=== PATIENT | female | born 1955 | race African-American/Black ===

== ENCOUNTER → 2020-11-09 | Outpatient (CLI) | payer MEDICARE ==
--- NOTE | 2020-11-11 11:27 | MM ---
Reason for exam: screening (asymptomatic). History: Patient is postmenopausal. Took hormonal contraceptives for 3 years. Physical Findings: A clinical breast exam by your physician is recommended on an annual basis and results should be correlated with mammographic findings. MG 3D Screening Mammo W/Cad Bilateral CC and MLO view(s) were taken. No prior studies available for comparison. The breast tissue is almost entirely fat. ASSESSMENT: Negative, BI-RAD 1 RECOMMENDATION: Routine screening mammogram of both breasts in 1 year.
== END | disposition home or self-care (01) ==
LOC: RADMAMWWP 12:56
PROVIDERS: ATTEND Family Medicine
DX: Z12.31 Encounter for screening mammogram for malignant neoplasm of breast (principal)
CPT/HCPCS: 77063; 77067

== ENCOUNTER → 2020-11-14 | Outpatient (CLI) | payer MEDICARE ==
[2020-11-14 13:04] VITALS: BP 137/75; PULSE 119; RESP 18
[2020-11-14 13:11] VITALS: TEMP 98.4
--- NOTE | 2020-11-14 13:34 | P.PAINCN ---
History of Present Illness - Reason for Consult Consult date: 11/14/20 - History of Present Illness This is a 64 years old female with a chronic history of severe low back pain, she is diagnosed with lumbar spondylosis with lumbar facet arthropathy, essentially she had diagnostic medial branch block lumbar area, L2 to L5 x2 , and she gets more than 80% improvement of her low back pain after each block, the pain relief was only for short-term and she was referred to [facility] pain clinic to have RFA of the medial branch lumbar area, she denies any motor or sensory deficit she denies any fever or night sweats and there is no change in the bowel movement or urination, she continued to use pain medication Ultram 50 mg every 6 hours when necessary Celebrex 200 mg daily when necessary and Flexeril 10 3 times a day when necessary, but generally fell from her primary care and she denies any side effects of the medication Past Medical History Past Medical History: Diabetes Mellitus, GERD/Reflux, Hyperlipidemia, Hypertension, Musculoskeletal Disorder, Osteoarthritis (OA) Additional Past Medical History / Comment(s): lumbar back pain History of Any Multi-Drug Resistant Organisms: None Reported Past Surgical History: Orthopedic Surgery, Tubal Ligation Additional Past Surgical History / Comment(s): right knee arthroscopy Past Anesthesia/Blood Transfusion Reactions: No Reported Reaction Past Psychological History: No Psychological Hx Reported Smoking Status: Current every day smoker Past Alcohol Use History: None Reported Additional Past Alcohol Use History / Comment(s): 1ppd for about 50 yrs. Past Drug Use History: None Reported Medications and Allergies Home Medications Medication Instructions Recorded Confirmed Type Atorvastatin [Lipitor] 10 mg PO DAILY 11/11/20 11/14/20 History Celecoxib [CeleBREX] 200 mg PO BID 11/11/20 11/14/20 History Cyclobenzaprine [Flexeril] 5 mg PO TID 11/11/20 11/14/20 History DULoxetine HCL [Cymbalta] 30 mg PO DAILY 11/11/20 11/14/20 History Loratadine [Claritin] 10 mg PO DAILY 11/11/20 11/14/20 History Omeprazole [PriLOSEC] 20 mg PO AC-BRKFST 11/11/20 11/14/20 History amLODIPine [Norvasc] 10 mg PO DAILY 11/11/20 11/14/20 History metFORMIN HCL [Glucophage] 500 mg PO BID 11/11/20 11/14/20 History traMADol HCL [Ultram] 50 mg PO BID 11/11/20 11/14/20 History Allergies Allergy/AdvReac Type Severity Reaction Status Date / Time No Known Allergies Allergy Verified 11/11/20 11:01 Physical Exam Vitals: Vital Signs Temp Pulse Resp BP Pulse Ox 11/14/20 12:59 98.4 F 119 H 18 137/75 96 Physical Examinations : -Constitutiona : Cooperative , not in acute distress . -HEENT : nech : supple , no Lymphadenopathy , normal thyroid size . : eyes : no ptosis , no icterus, no photophobia . - neurologic : Cranial nerve II to XII intact , no focal neurological deffecit . -psychatric : alert , oriented X 3 , appropriate affect , intact judgment and insight . -Lymphatic : no Lymphadenopathy . - musculoskeltal : Lumber spine moter stegnth lower extremities ,thigh and legs 5/5 Right side , 5/5 Left side deep tendon reflexes : normal Knee Jerk , normal ankle Jerk lumber facet Loading Test =positive Right , posiutive Left Range of motion of the lumbar spine Flexion 30 degrees, extension 10 degrees strait leg raising test = negative bilaterally Fabere test= negative bilaterally . Sever tenderness over the Sacroiliac joint on the Right . Gaenslen test= positive right. Seated flexion test= positive right . Assessment and Plan Plan: Assessment and plan=1-lumbar radiculopathy with facet arthropathy without m yelopathy 2-right sacroiliitis Patient had diagnostic medial branch blocks lumbar area and she had excellent pain relief ( 85 % ) on 2 different occasions He would be good candidate for RFA of the medial branch lumbar area at L3 , L4, L5 bilaterally Time with Patient: Greater than 30 PQRS Measure Charge Sheet Measure #130: Documentation of Current Meds in Medical Chart: Patient's medications documented in chart Measure #226: Tobacco Use: Screen & Cessation Intervention: Pt screened for tobacco use AND intervention given Measure #111: Pneumonia Vaccination: Pneumococcal vaccine NOT administered or previously given Measure #47: Advance Care Plan: Advance care planning discussed & documented, pt chose/unable to give Measure #412: Opioid Treatment Agreement: No documentation of signed opioid treatment agreement Measure #408: Opioid Therapy Follow-up Evaluation: Patient had NO f/u eval minimum every 3 months during opioid therapy Measure #317: Preventitive Care & Scrn High Bld Press & F/U: Normal blood pressure, f/u not required Measure #128: Body Mass Index (BMI) Screening & Follow-up: BMI documented ABOVE normal parameters - f/u documented Measure #131: Pain Assessment & Follow-up: Pain positive & plan documented, Follow-up scheduled Measure #431: Unhealthy Alcohol Use Preventative Care & Scrn: Patient not identified as an unhealthy alcohol user PQRS Narrative: Blood Pressure 137/75 Pain Intensity [None] 8 Scale Used Numeric (1 - 10) Hx Alcohol Use (MH) No Home Medications: Ambulatory Orders Atorvastatin [Lipitor] 10 mg PO DAILY 11/11/20 Celecoxib [CeleBREX] 200 mg PO BID 11/11/20 Cyclobenzaprine [Flexeril] 5 mg PO TID 11/11/20 DULoxetine HCL [Cymbalta] 30 mg PO DAILY 11/11/20 Loratadine [Claritin] 10 mg PO DAILY 11/11/20 Omeprazole [PriLOSEC] 20 mg PO AC-BRKFST 11/11/20 amLODIPine [Norvasc] 10 mg PO DAILY 11/11/20 metFORMIN HCL [Glucophage] 500 mg PO BID 11/11/20 traMADol HCL [Ultram] 50 mg PO BID 11/11/20
== END | disposition home or self-care (01) ==
LOC: PNWHC3 12:48
PROVIDERS: ATTEND Specialist
DX: M54.16 Radiculopathy, lumbar region (principal); M46.1 Sacroiliitis, not elsewhere classified; E11.9 Type 2 diabetes mellitus without complications; K21.9 Gastro-esophageal reflux disease without esophagitis; E78.5 Hyperlipidemia, unspecified; I10 Essential (primary) hypertension; M19.90 Unspecified osteoarthritis, unspecified site; Z79.84 Long term (current) use of oral hypoglycemic drugs; Z79.891 Long term (current) use of opiate analgesic; Z79.899 Other long term (current) drug therapy
CPT/HCPCS: 99211

== ENCOUNTER 2020-12-02 09:37 | Day surgery (SDC) | payer MEDICARE ==
[2020-11-28 14:01] VITALS: BMI 29.9
[~2020-12-02 09:37] MED LIST: LACTATED RINGERS 1,000 ML IV SCH
[2020-12-02 09:58] VITALS: TEMP 97.9
[2020-12-02] MEDS ORDERED: LIDOCAINE 1% (10MG/ML) FOR IV START INTRADERMA ONE (10:19)
[2020-12-02 10:24] LABS: Glucose,Whole Blood 101 mg/dL (75-99)
[2020-12-02] MEDS ORDERED: ROPIVACAINE 5MG/ML 20ML VIAL ONE (11:05)
[2020-12-02] MEDS ORDERED: MIDAZOLAM 2 MG/2 ML VIAL ONE (11:05)
[2020-12-02] MEDS ORDERED: fentaNYL (PF) 50 MCG/ML 2 ML AMP ONE (11:05)
[2020-12-02] MEDS ORDERED: methylPREDNISolone ACETATE 40 MG/ML 1 ML VIAL ONE (11:05)
--- NOTE | 2020-12-02 11:36 | P.PCN ---
Date of Procedure: 12/02/20 Procedure(s) Performed: PREOPERATIVE DIAGNOSIS: 1-Lumbar Spondylosis with Facet Arthropathy without myelopathy. POSTOPERATIVE DIAGNOSIS: 1- Lumbar Spondylosis with Facet Arthropathy without myelopathy. PROCEDURES : Bilateral Radiofrequency thermocoagulation, L3 , L4 , and L5 medial branch, with fluoroscopic guidance (fluoroscopy images available in the radiology department) ( to denervate the facet joint at L4-5 ,and L5-S1 levels ). ANESTHESIA: Monitored anesthesia care as per anesthesia department . EBL: Minimal PROCEDURE INDICATION: The patient with low back pain secondary to lumbar facet arthropathy who had more than 50% relief of her pain with previous diagnostic lumbar medial branch block with bupivacaine. PROCEDURE DESCRIPTION / TECHNIQUE: The patient was seen and identified in the preoperative area. Risks, benefits, complications, including but not limited to risk of infection ,bleeding , allergic reactions to the medications and no complete pain releife , and alternatives were discussed with the patient, the patient agreed to proceed with the procedure and signed the consent. IV was started. Vital signs remained stable throughout the procedure. Patient was taken to the OR and time out was completed. The patient was placed in the prone position on the procedure table. The lumber area was prepped and draped in the usual sterile fashion. . Vital signs were closely monitored during the procedure .IV sedation was used during the procedure to decrease patients anxiety. Using AP and then oblique fluoroscopy, the ``eye of the Kentrell dog corresponding to the connection between the superior and transverse articular processes of right L3, L4, and L5 were identified, marked, and localized with 1% lidocaine. Subsequently, a 18 -ci radiofrequency cannula with a 10- mm active tip was advanced guided by fluoroscopy to each of the``eyes of the Kentrell dog at right L3, L4, and L5. Each site then underwent sensory testing at 50 Hz and 0 to 1 volt and motor testing at 2.5 Hz and 0 to 3 volt with local stimulation, but no radicular symptoms down the legs. Thereafter each sites underwent radiofrequency thermocoagulation at 80 degrees celsius for 90 seconds after injecting 0.5 ml of PF Ropivacaine 1ml, then after the thermocoagulation done , 1 ml of the block solution containing Depo-Medrol 20 mg and 3 ml of Ropivacaine 0.5% was injected at the right L3 , L4 , and L5 , levels after negative aspiration of CSF and blood and with no paresthesias. Cannulas were retracted while injecting lidocaine 1% until the needle is out. The same procedure was repeated at the level of Left L3, L4, and L5 levels. At the end of the procedure, the skin was cleansed and bandages were applied. COMPLICATIONS: No acute complications. DISPOSITION / PLANS: The patient was placed in a supine position and transferred to the recovery area in a stable condition for observation and was discharged from the recovery room after meeting discharge criteria. Home discharge instructions given to the patient by the staff. The patient was reexamined prior to discharge. The patient will schedule a follow up in the clinic in 2-4 weeks.
--- NOTE | 2020-12-02 11:40 | FL ---
EXAMINATION TYPE: FL guided pain mgmt statistic DATE OF EXAM: 12/02/2020 CLINICAL HISTORY: Low back pain. TECHNIQUE: Fluoroscopy. COMPARISON: None. FINDINGS: Fluoroscopic guidance was provided during pain relief procedure performed by Dr. Lilly . A total of 11 seconds of fluoroscopic time was utilized during the procedure and 6 spot images are acquired. Images acquired not loaded into PACS at time of dictation. IMPRESSION: As Above.
[2020-12-02] MEDS ORDERED: IV FLUID CONTINUATION 150 ML IV ONE (11:49)
[2020-12-02 12:01] VITALS: BP 147/77; PULSE 100; RESP 20
== END 2020-12-02 12:11 | disposition home or self-care (01) ==
LOC: ORPAIN 09:37
PROVIDERS: ATTEND Specialist
DX: M47.816 Spondylosis without myelopathy or radiculopathy, lumbar region (principal); E11.9 Type 2 diabetes mellitus without complications; I10 Essential (primary) hypertension; K21.9 Gastro-esophageal reflux disease without esophagitis; Z79.84 Long term (current) use of oral hypoglycemic drugs; Z79.899 Other long term (current) drug therapy
CPT/HCPCS: 64635; 64636; J2250; J1030; J3010; J2795

== ENCOUNTER → 2020-12-26 | Outpatient (CLI) | payer MEDICARE ==
[2020-12-26 10:20] VITALS: BP 156/75; PULSE 114; RESP 16; TEMP 97.7
--- NOTE | 2020-12-26 10:28 | P.PN ---
Subjective Progress Note Date: 12/26/20 This is a 65-year-old lady with history of chronic lower back pain with radiation to the lower extremities down to the ankles however she denies any paresthesia in the lower extremities. She had lumbar medial branch RFA was give her some pain relief in her back however her legs pain is still bad as she states. The lumbar spine MRI showed severe neural foraminal stenosis at the L5- S1 level bilaterally with contact with the L5 nerve roots bilaterally. Patient denies new-onset weakness, bowel/bladder incontinence, or any other signs or symptoms of cauda equina syndrome. There are no signs of acute intoxication, and no indications of medication diversion or overuse. In addition to above, 13-point review of systems is also negative for chest pain, shortness of breath, changes in vision, changes in hearing, new onset weakness, abdominal pain, diarrhea, extreme fatigue, malaise, fever, skin changes, homicidal or suicidal ideation, or bowel or bladder incontinence. Vital Signs: Reviewed in EMR Gen: AAOx3, NAD HEENT: PERRLA,hearing grossly normal Pulm: resp unlabored Neck: supple, trachea midline Neuro exam of the lower extremities: Normal muscle strength bilaterally Straight leg raising test: Renato's test: Range of motion of the lumbar spine: Facet loading test: Positive bilaterally Tenderness in the paravertebral musculature: Positive on the lumbar area bilaterally Neuro: CN II-XII grossly intact, Imaging: Reviewed in EMR/chart Assessment: Lumbar stenosis Lumbar spondylosis without myelopathy Plan: 1. Explanation: Opioid and psychological risk scores were reviewed. Diagnoses, prognoses, and multiple treatment options including but not limited to physical therapy, interventional therapies, adjuvant medical therapies, narcotic medication therapies, and surgery were discussed with the patient and all questions were answered to the patient's satisfaction. 2. Opioid agreement: Signed with the patient and the patient is warned not to use opioids while driving or before driving and not to combine opioids with benzodiazepines or alcohol. 3. Counseling: The patient was counseled extensively on SMOKING CESSATION, BODY MASS INDEX, EXERCISE. Specifically, the patient was instructed regarding the importance of smoking cessation, obesity, and exercise in the context of both chronic pain and overall health. 4. Procedures: Schedule lumbar epidural steroid injection at the L5-S1 level in the interlaminar approach under fluoroscopic guidance 5. Consultations: None 6. Investigations: None 7. Medications: None from our clinic 8. Disposition: Proceed with the above-mentioned procedure as soon as possible 9. Maps were reviewed and were appropriate. Objective - Vital Signs Vital signs: Vital Signs Temp 97.7 F 12/26/20 10:18 Pulse 114 H 12/26/20 10:18 Resp 16 12/26/20 10:18 BP 156/75 12/26/20 10:18 Pulse Ox 97 12/26/20 10:18
== END ==
LOC: PNWHC3 09:44
PROVIDERS: ATTEND Anesthesiology
DX: M47.816 Spondylosis without myelopathy or radiculopathy, lumbar region (principal); M48.061 Spinal stenosis, lumbar region without neurogenic claudication
CPT/HCPCS: 99211

== ENCOUNTER → 2022-03-13 | Day surgery (SDC) | payer MEDICARE, OTHER ==
[2022-03-12 09:37] VITALS: BMI 28.4
[~2022-03-13] MED LIST changes: +IOPAMIDOL M200 10 ML VIAL ONE; +IV FLUID CONTINUATION 1,000 ML IV ONE; +LACTATED RINGERS 1,000 ML IV ONE; -LACTATED RINGERS 1,000 ML IV SCH; +LIDOCAINE 1% (10MG/ML) FOR IV START INTRADERMA ONE; +MIDAZOLAM 2 MG/2 ML VIAL ONE; +fentaNYL (PF) 50 MCG/ML 2 ML AMP ONE; +methylPREDNISolone ACETATE 40 MG/ML 1 ML VIAL ONE
[2022-03-13 07:04] VITALS: TEMP 97
[2022-03-13 07:06] LABS: Glucose,Whole Blood 107 mg/dL (75-99)
--- NOTE | 2022-03-13 07:34 | P.PCN ---
Date of Procedure: 03/13/22 Procedure(s) Performed: PREOPERATIVE DIAGNOSIS: 1- Lumbar Degenerative Disc Diseases 2-Lumbar spondylosis with Facet arthropathy without myelopathy POSTOPERATIVE DIAGNOSIS: Same as preop diagnosis. PROCEDURE 1. Lumbar epidural steroid injection under fluoroscopic guidance at the L5-S1 level. (Fluoroscopy imaging was available in radiology department) 2. Lumbar epidurogram. ANESTHESIA: Local with 1% lidocaine 3 ml and , moderate sedation with intravenous Versed 2 mg ,and fentanyle 100 Mcg EBL: Minimal PROCEDURE INDICATION: The patient with low back pain and radiculitis symptoms unresponsive to conservative treatment. Fluoroscopy was used to optimize visuali zation of the needle placement and to maximize safety. PROCEDURE DESCRIPTION / TECHNIQUE: The patient was seen and identified in the preoperative area. Risks, benefits, complications including but not limited to infections ,bleeding ,allergic reaction to the medications ,nerve damage and not complete pain releife , and alternatives were discussed with the patient. The patient agreed to proceed with the procedure and signed the consent. IV was started, and vital signs were stable. Patient was taken to the OR and time out was completed. The patient was placed in the prone position on procedure table and a pillow was placed under the abdomen to reduce lumbar lordosis. The lumbosacral area was prepped and draped in the usual sterile fashion.ere closely monitored during the procedure. Conscious sedation was used during the procedure to decrease patients anxiety. Vital signs was monitered during the entire procedure. Using anterior-posterior fluoroscopy, the L5-S1 interlaminar space was identified and the skin over this site was marked and then infiltrated with 1% lidocaine subcutaneously. Subsequently, a 18-gauge Tuohy epidural needle was inserted and advanced toward the epidural space using the ``Loss of resistance technique and guided by AP and lateral fluoroscopy. The correct needle position in the epidural space was verified with the injection of 2 mL of the water geovanny uble contrast dye Isovue 200 contrast and observing an excellent epidurogram with the epidural spread of the dye, after negative aspiration for blood and CSF and in the absence of paresthesias. Again after negative aspiration, a 6 ml mixture containing 40 mg of Depo-medrol , and 2 ml of preservative free Normal Saline, and 2 ml of preservative free lidocaine 1% solution was injected and a washout of epidurogram was seen. Needle was withdrawn intact, skin was cleansed, and bandages were applied. COMPLICATIONS: None DISPOSITION / PLANS: The patient was placed in a supine position and transferred to the recovery area in a stable condition for observation. There was no evidence of lower extremity motor or sensory deficit after the procedure. Patient was discharged from the recovery room after meeting discharge criteria. Home discharge instructions were given to the patient by the staff. The patient was reexamined prior to discharge. The patient will schedule a follow up in the clinic in 2-4 weeks.
[2022-03-13 07:49] VITALS: RESP 16
[2022-03-13 08:00] VITALS: BP 119/75; PULSE 96
--- NOTE | 2022-03-13 08:16 | FL ---
EXAMINATION TYPE: FL guided pain mgmt statistic DATE OF EXAM: 03/13/2022 CLINICAL HISTORY: Lumbar epidural injection TECHNIQUE: Fluoroscopic guided lumbar epidural injection FINDINGS: Fluoroscopic guidance was provided during the procedure. A total of 3 seconds of fluorosco pic time was utilized during the procedure and 1 spot image was acquired. IMPRESSION: As Above.
== END ==
LOC: ORPAIN 06:10
PROVIDERS: ATTEND Specialist
DX: M51.16 Intervertebral disc disorders with radiculopathy, lumbar region (principal); M47.26 Other spondylosis with radiculopathy, lumbar region
CPT/HCPCS: 62323; J2250; J1030; J3010; Q9966

== ENCOUNTER → 2022-04-04 | Outpatient (CLI) | payer MEDICARE, OTHER | END | disposition home or self-care (01) | LOC: LABWHC1 10:47 | PROVIDERS: ATTEND Family Medicine | DX: Z87.448 Personal history of other diseases of urinary system (principal) | CPT/HCPCS: 36415; 83970 ==

== ENCOUNTER → 2022-04-04 | Outpatient (CLI) | payer MEDICARE, OTHER ==
[2022-04-04 10:45] VITALS: BP 155/106; PULSE 104; RESP 18; TEMP 98.5
--- NOTE | 2022-04-04 10:45 | P.PAINPG ---
PQRS Measure Charge Sheet Comment: A 66 yr old female with a history of severe and chronic low back pain secondary to lumbar degenerative disc diseases and lumbar spondylosis with facet arthropathy presents today for evaluation status post LESI L5-S1. Pt states she experienced 80% pain relief x 1wks s/p procedure. Pain level is currently at 8/10 in intensity, localized in the lower aspects of her lumbar spine with radiation of tingling pain down the LEs below the knees at the calves and feet. Pain is provoked by walking for periods of 15 min or more. Pain is alleviated with medications (Tramadol, Celebrex), injections, ice, heat, PT for 4 mo in 2019, laying in the position in bed, repositioning and rest. Interventional pain procedures completed include BL RFA L3-L5, LESI L5-S1 Patient is currently on Tramadol prn, Celebrex. Patient denies any side effects of the medication(s), denies excessive drowsiness or sleepiness, denies suicidal ideation and reports that the current pain medication is helping to control the pain and improve activities of daily living. Patient denies any motor or sensory deficits. Patient denies any fever or night sweats, denies any change in the bowel movements or urination. Physical Examination: -Constitutional: Cooperative. Not in acute distress . - Neurologic: Cranial nerve II to XII intact. No focal neurological deficits. - Psychatric: Alert & oriented x 3. Matching mood & appropriate affect. Judgment and insight intact. - Musculoskeletal: Cervical spine: Muscle bulk/ tone/ strength in the bilateral upper extremities normal Vertebral body tenderness to palpation over Spurling test positive Distraction test positive Facet loading test positive Thoracic spine Muscle bulk / tone/ strength in the bilateral paraspinal muscles normal Vertebral body tender to palpation over Facet loading test positive Lumbar spine: Motor bulk/ tone/ strength lower extremities , thigh and legs : 5/5 Deep tendon reflexes : Normal Knee Jerk. Normal Ankle Jerk . Vertebral body tenderness to palpation over BL L4-L5, L5-S1 w accompanying paraspinal TTP Lumbar Facet Loading Test positive Straight Leg Raise: positive at 30 degrees right side/ left side Gaenslen's Test positive Sacral spine : Severe tenderness over the Sacroiliac joint: right side / left side Range of motion: Flexion of the lumbar spine <60 degrees Range of motion: Extension of the lumbar spine <20 degrees Gaenslen's Test positive Renato's Test positive Erika test: positive right side / left side Thigh Thrust Test Sacral Thrust Test Assessment and plan: Chronic low back pain secondary to lumbar degenerative disc disease , lumbar spondylosis with facet arthropathy without myelopathy Recommendation of BL RFA L4-L5, L5-S1. Risks, benefits of procedure discussed and pt verbalized understanding. Admits to prescription ASA 325mg use. Admits to a medical history of diabetes. Protocol for discontinuation/ continuation of medications red procedure discussed. All patient questions answered MAPS reviewed and it was appropriate. I have spent less than 30 minutes on patient care today. Dr Lilly was available by phone for the evaluation of this patient. The time was used to review the medical records including relevant urine studies and Prescription history (MAPs), review of the available imaging, evaluation and examination of the patient, coordination of care with the medical staff and if applicable referring physicians, as well as creation of the medical record PQRS Narrative: Hx Alcohol Use (MH) Yes: RARE Home Medications: Ambulatory Orders Celecoxib [CeleBREX] 200 mg PO BID 11/11/20 Cyclobenzaprine [Flexeril] 5 mg PO TID 11/11/20 DULoxetine HCL [Cymbalta] 30 mg PO HS 11/11/20 Loratadine [Claritin] 10 mg PO DAILY 11/11/20 Omeprazole [PriLOSEC] 20 mg PO AC-BRKFST 11/11/20 amLODIPine [Norvasc] 10 mg PO DAILY 11/11/20 metFORMIN HCL [Glucophage] 250 mg PO BID 11/11/20 Aspirin [Adult Low Dose Aspirin EC] 81 mg PO DAILY 03/12/22 Atorvastatin [Lipitor] 40 mg PO DAILY 03/12/22 ramipriL 1.25 mg PO PC-LUNCH 03/12/22 traMADol HCL [Ultram] 50 mg PO BID 03/12/22 Controlled Substance Measures - Controlled Substance Measures Is patient prescribed a controlled substance at discharge?: No
== END ==
LOC: PNWHC3 10:14
PROVIDERS: ATTEND Specialist
DX: M51.36 Other intervertebral disc degeneration, lumbar region (principal); M47.816 Spondylosis without myelopathy or radiculopathy, lumbar region; G89.29 Other chronic pain
CPT/HCPCS: 99211

== ENCOUNTER 2022-05-04 07:22 | Day surgery (SDC) | payer MEDICARE, OTHER ==
[2022-05-02 12:27] VITALS: BMI 29.2
[~2022-05-04 07:22] MED LIST changes: -IOPAMIDOL M200 10 ML VIAL ONE; -IV FLUID CONTINUATION 1,000 ML IV ONE; -LACTATED RINGERS 1,000 ML IV ONE; +LACTATED RINGERS 1,000 ML IV SCH; -LIDOCAINE 1% (10MG/ML) FOR IV START INTRADERMA ONE; +LIDOCAINE 1% (10MG/ML) FOR IV START INTRADERMA PRN; -MIDAZOLAM 2 MG/2 ML VIAL ONE; -fentaNYL (PF) 50 MCG/ML 2 ML AMP ONE; -methylPREDNISolone ACETATE 40 MG/ML 1 ML VIAL ONE
[2022-05-04 07:46] VITALS: RESP 18; TEMP 96.5
[2022-05-04 07:59] LABS: Glucose,Whole Blood 104 mg/dL (70-110)
[2022-05-04] MEDS ORDERED: ROPIVACAINE 5MG/ML 20ML VIAL ONE (08:44)
[2022-05-04] MEDS ORDERED: MIDAZOLAM 2 MG/2 ML VIAL ONE (08:44)
[2022-05-04] MEDS ORDERED: methylPREDNISolone ACETATE 40 MG/ML 1 ML VIAL ONE (08:44)
[2022-05-04] MEDS ORDERED: fentaNYL (PF) 50 MCG/ML 2 ML AMP ONE (08:44)
--- NOTE | 2022-05-04 09:12 | P.PCN ---
Date of Procedure: 05/04/22 Procedure(s) Performed: PREOPERATIVE DIAGNOSIS: 1-Lumbar Spondylosis with Facet Arthropathy without myelopathy. POSTOPERATIVE DIAGNOSIS: 1- Lumbar Spondylosis with Facet Arthropathy without myelopathy. PROCEDURES : Bilateral Radiofrequency thermocoagulation, L3 , L4 , and L5 medial branch, with fluoroscopic guidance (fluoroscopy images available in the radiology department) ( to denervate the facet joint at bilateral L4-5 ,and L5-S1 levels ). ANESTHESIA: Monitored anesthesia care as per anesthesia department . EBL: Minimal PROCEDURE INDICATION: The patient with low back pain secondary to lumbar facet arthropathy who had more than 50% relief of her pain with previous diagnostic lumbar medial branch block with bupivacaine. PROCEDURE DESCRIPTION / TECHNIQUE: The patient was seen and identified in the preoperative area. Risks, benefits, complications, including but not limited to risk of infection ,bleeding , allergic reactions to the medications and no complete pain releife , and alternatives were discussed with the patient, the patient agreed to proceed with the procedure and signed the consent. IV was started. Vital signs remained stable throughout the procedure. Patient was taken to the OR and time out was completed. The patient was placed in the prone position on the procedure table. The lumber area was prepped and draped in the usual sterile fashion. . Vital signs were closely monitored during the procedure .IV sedation was used during the procedure to decrease patients anxiety. Using AP and then oblique fluoroscopy, the ``eye of the Kentrell dog corresponding to the connection between the superior and transverse articular processes of right L3, L4, and L5 were identified, marked, and localized with 1% lidocaine. Subsequently, a 18 -ti radiofrequency cannula with a 10- mm active tip was advanced guided by fluoroscopy to each of the``eyes of the Kentrell dog at right L3, L4, and L5. Each site then underwent sensory testing at 50 Hz and 0 to 1 volt and motor testing at 2.5 Hz and 0 to 3 volt with local stimulation, but no radicular symptoms down the legs. Thereafter each sites underwent radiofrequency thermocoagulation at 80 degrees celsius for 90 seconds after injecting 0.5 ml of PF Ropivacaine 1ml, then after the thermocoagulation done , 1 ml of the block solution containing Depo-Medrol 20 mg and 3 ml of Ropivacaine 0.5% was injected at the right L3 , L4 , and L5 , levels after negative aspiration of CSF and blood and with no paresthesias. Cannulas were retracted while injecting lidocaine 1% until the needle is out. The same procedure was repeated at the level of Left L3, L4, and L5 levels. At the end of the procedure, the skin was cleansed and bandages were applied. COMPLICATIONS: No acute complications. DISPOSITION / PLANS: The patient was placed in a supine position and tr ansferred to the recovery area in a stable condition for observation and was discharged from the recovery room after meeting discharge criteria. Home discharge instructions given to the patient by the staff. The patient was reexamined prior to discharge. The patient will schedule a follow up in the clinic in 2-4 weeks.
--- NOTE | 2022-05-04 09:24 | FL ---
Intraoperative/procedural fluoroscopic services were provided. Total fluoroscopy time is 14 seconds w ith a total of 6 submitted images to PACS. Please see the operative/procedural note for further detai ls.
[2022-05-04 09:36] VITALS: BP 125/82; PULSE 99
[2022-05-04] MEDS ORDERED: IV FLUID CONTINUATION 1,000 ML IV ONE (09:36)
== END 2022-05-04 09:38 | disposition home or self-care (01) ==
LOC: ORPAIN 07:22
PROVIDERS: ATTEND Specialist
DX: M47.816 Spondylosis without myelopathy or radiculopathy, lumbar region (principal); I10 Essential (primary) hypertension; E11.9 Type 2 diabetes mellitus without complications; K21.9 Gastro-esophageal reflux disease without esophagitis
CPT/HCPCS: 64635; 64636 ×2; J2250; J1030; J3010; J2795

== ENCOUNTER → 2022-05-28 | Outpatient (CLI) | payer MEDICARE, OTHER ==
[2022-05-28 12:21] VITALS: BP 147/87; PULSE 105; RESP 18; TEMP 98.8
--- NOTE | 2022-05-28 12:38 | P.PAINPG ---
PQRS Measure Charge Sheet Comment: A 66 yr old female with a history of severe and chronic low back pain secondary to lumbar degenerative disc diseases and lumbar spondylosis with facet arthropathy presents today for evaluation s/p BL RFA L3-L5. Pt states she received 80% pain relief x 1 wk s/p procedure. Pain level is currently at 7/10 in intensity, constant, localized in lower lumbar spine, sharp/ shooting in character towards the BLEs and upwards towards the mid back. Pain is provoked by excessive walking for periods of 20 min or more. Pain is alleviated with heat, ice sometimes, medications (Celebrex, Tramadol), sitting w LEs elevated, repositioning and rest. MRI reviewed w patient again. Interventional pain procedures completed include BL RFA L3-L5 Patient is currently on Tramadol, Celebrex occasionally. Patient denies any side effects of the medication(s), denies excessive drowsiness or sleepiness, denies suicidal ideation and reports that the current pain medication is helping to control the pain and improve activities of daily living. Patient denies any motor or sensory deficits. Patient denies any fever or night sweats, denies any change in the bowel movements or urination. Physical Examination: -Constitutional: Cooperative. Not in acute distress . - Neurologic: Cranial nerve II to XII intact. No focal neurological deficits. - Psychatric: Alert & oriented x 3. Matching mood & appropriate affect. Judgment and insight intact. - Musculoskeletal: Cervical spine: Muscle bulk/ tone/ strength in the bilateral upper extremities normal Vertebral body tenderness to palpation over Spurling test positive Distraction test positive Facet loading test positive Thoracic spine Muscle bulk / tone/ strength in the bilateral paraspinal muscles normal Vertebral body tender to palpation over Facet loading test positive Lumbar spine: Motor bulk/ tone/ strength lower extremities , thigh and legs : 5/5 Deep tendon reflexes : Normal Knee Jerk. Normal Ankle Jerk . Vertebral body tenderness to palpation over Lumbar Facet Loading Test positive Straight Leg Raise: positive at 30 degrees right side/ left side Gaenslen's Test positive Sacral spine : Severe tenderness over the Sacroiliac joint: right side / left side Range of motion: Flexion of the lumbar spine <60 degrees Range of motion: Extension of the lumbar spine <20 degrees Gaenslen's Test positive Renato's Test positive Erika test: positive right side / left side Thigh Thrust Test Sacral Thrust Test Assessment and plan: Chronic low back pain secondary to lumbar degenerative disc disease , lumbar spondylosis with facet arthropathy without myelopathy Recommendation of PT of the Lumbar spine 2 x per week x 6 wks Re: M47.816, M51.36. She will follow up w her orthopedic surgeon, Dr East, to explore additional treatment options. All patient questions answered MAPS reviewed and it was appropriate Prescription refill for Celebrex 100mg #60 w 1 refill I have spent less than 30 minutes on patient care today. Dr Lilly was available by phone for the evaluation of this patient. The time was used to review the medical records including relevant urine studies and Prescription history (MAPs), review of the available imaging, evaluation and examination of the patient, coordination of care with the medical staff and if applicable referring physicians, as well as creation of the medical record PQRS Narrative: Hx Alcohol Use (MH) Yes: RARE Home Medications: Ambulatory Orders Cyclobenzaprine [Flexeril] 5 mg PO TID 11/11/20 DULoxetine HCL [Cymbalta] 30 mg PO HS 11/11/20 Loratadine [Claritin] 10 mg PO DAILY 11/11/20 Omeprazole [PriLOSEC] 20 mg PO AC-BRKFST 11/11/20 amLODIPine [Norvasc] 10 mg PO DAILY 11/11/20 metFORMIN HCL [Glucophage] 250 mg PO BID 11/11/20 Aspirin [Adult Low Dose Aspirin EC] 81 mg PO DAILY 03/12/22 Atorvastatin [Lipitor] 40 mg PO DAILY 03/12/22 ramipriL 1.25 mg PO PC-LUNCH 03/12/22 traMADol HCL [Ultram] 50 mg PO BID 03/12/22 Celecoxib [CeleBREX] 200 mg PO BID 30 Days #60 cap 05/28/22 Controlled Substance Measures - Controlled Substance Measures Is patient prescribed a controlled substance at discharge?: No
== END ==
LOC: PNWHC3 10:08
PROVIDERS: ATTEND Specialist
DX: M51.36 Other intervertebral disc degeneration, lumbar region (principal); M47.816 Spondylosis without myelopathy or radiculopathy, lumbar region; G89.29 Other chronic pain
CPT/HCPCS: 99211

== ENCOUNTER 2022-10-08 09:41 | Day surgery (SDC) | payer MEDICARE, OTHER ==
[2022-10-04 12:04] VITALS: BMI 27.7
[~2022-10-08 09:41] MED LIST changes: +DEXAMETHASONE SOD PHOSPHATE 4 MG/ML 1 ML VIAL IV ONE; +HYDROmorphone 0.5 MG/0.5 ML SYRINGE IVP PRN; -LIDOCAINE 1% (10MG/ML) FOR IV START INTRADERMA PRN; +MIDAZOLAM 2 MG/2 ML VIAL IV PRN; +ONDANSETRON 4 MG/2 ML VIAL IVP ONE
[2022-10-08 10:21] VITALS: TEMP 97.4
[2022-10-08 10:36] LABS: Glucose,Whole Blood 103 mg/dL (70-110)
[2022-10-08] MEDS ORDERED: KETOROLAC 15 MG/ML 1 ML VIAL ONE (11:28)
[2022-10-08] MEDS ORDERED: LIDOCAINE 2% INJ 20 MG/ML (2 ML VIAL) ONE (11:28)
[2022-10-08] MEDS ORDERED: MIDAZOLAM 2 MG/2 ML VIAL ONE (11:28)
[2022-10-08] MEDS ORDERED: PROPOFOL 10 MG/ML 20 ML VIAL IV ONE (11:28)
[2022-10-08] MEDS ORDERED: fentaNYL (PF) 50 MCG/ML 2 ML AMP ONE (11:28)
[2022-10-08] MEDS ORDERED: SODIUM CHLORIDE 0.9% 100 ML with ceFAZolin 2,000 MG IV ONE ×2 (11:33)
[2022-10-08] MEDS ORDERED: BUPIVACAINE (PF) 0.25% 30 ML VIAL SQ ONE ×2 (11:51→12:01)
--- NOTE | 2022-10-08 12:10 | P.OP ---
Date of Procedure: 10/08/22 Preoperative Diagnosis: 1. Torn lateral meniscus right knee 2. Osteoarthritis right knee Postoperative Diagnosis: 1. Torn lateral meniscus right knee 2. Grade 4 chondromalacia lateral femoral compartment 3. Grade 2 chondromalacia patellofemoral compartment 4. Synovitis Procedure(s) Performed: 1. Arthroscopy of the right knee with partial lateral meniscectomy (30% of the meniscus excised) 2. Chondroplasty of lateral and patellofemoral compartments 3. Partial synovectomy of the medial femoral, lateral femoral, and patellofemoral compartments Anesthesia: VALERIAA Surgeon: Galen Russell Estimated Blood Loss (ml): 5 Pathology: none sent Condition: stable Disposition: PACU Indications for Procedure: This is a 66-year-old female that was seen by me in the office for pain in her right knee. MRI demonstrated torn lateral meniscus and osteoarthritis and after discussing the surgical and nonsurgical treatment options with her at length she wished to proceed with arthroscopic debridement of her right knee. Informed consent was obtained. Operative Findings: The operative findings are consistent with a torn lateral meniscus, grade 4 chondral malacia lateral femoral compartment, grade 2 chondral malacia patellofemoral compartment, and synovitis Description of Procedure: Patient was seen and evaluated in the preoperative area, the operative site was marked with a skin marker. The patient was then brought to the operating room and given 2 g of Ancef intravenously. A general anesthetic was administered by the anesthesia department. Tourniquet was placed on the right upper thigh and the left lower extremity was then prepped and draped in usual sterile fashion. A universal timeout was then performed confirming the patient's name, surgical site, ALLERGIES, and consent. The limb was then exsanguinated and tourniquet insufflated to 250 mmHg. Standard inferior medial and inferior lateral portals were established in the knee. The trochar was inserted in the inferolateral portal. Examination began at the patellofemoral joint. There is noted to be grade 2 chondral malacia the patellofemoral compartment and a moderate amount of synovitis. Next the medial compartment was visualized. There was no tear of the medial meniscus. There was no significant chondral malacia of the mediofemoral compartment, but there was a moderate amount of synovitis. The notch area was then visualized and the ACL was intact. The Lateral compartment was then visualized and there was a tear of the posterior horn of the lateral meniscus. There was grade 4 chondromalacia of the lateral compartment and a mild amount of synovitis. Next, using an arthroscopic shaver and a biter, partial lateral meniscectomy was performed stable margins. Approximately 30% of the meniscus was excised. A partial synovectomy is performed the medial femoral, lateral femoral, patellofemoral compartments. Chondroplasty was also performed of the lateral femoral and patellofemoral compartments of the knee. Knee was then copiously irrigated, instruments removed, incisions were closed with 4-0 nylon. 30 mL of quarter percent plain Marcaine was injected sterilely into the surgical area. A sterile dressing was then applied, and the tourniquet was released. Patient was then transferred to recovery room in stable condition.condition.
[2022-10-08 12:38] LABS: Glucose,Whole Blood 113 mg/dL (70-110)
[2022-10-08 13:38] VITALS: BP 135/85; PULSE 94; RESP 16
== END 2022-10-08 14:19 | disposition home or self-care (01) ==
LOC: OR 09:41
PROVIDERS: ATTEND Orthopaedic Surgery
DX: S83.281A Other tear of lateral meniscus, current injury, right knee, initial encounter (principal); M94.261 Chondromalacia, right knee; M17.11 Unilateral primary osteoarthritis, right knee; M65.861 Other synovitis and tenosynovitis, right lower leg; I10 Essential (primary) hypertension; E78.5 Hyperlipidemia, unspecified; E11.9 Type 2 diabetes mellitus without complications; Z79.84 Long term (current) use of oral hypoglycemic drugs; Z82.49 Family history of ischemic heart disease and other diseases of the circulatory system; F17.210 Nicotine dependence, cigarettes, uncomplicated; F10.20 Alcohol dependence, uncomplicated; Z79.1 Long term (current) use of non-steroidal anti-inflammatories (NSAID); Z79.02 Long term (current) use of antithrombotics/antiplatelets; Z79.82 Long term (current) use of aspirin; Z79.83 Long term (current) use of bisphosphonates; Z79.811 Long term (current) use of aromatase inhibitors; Z79.891 Long term (current) use of opiate analgesic; Z79.899 Other long term (current) drug therapy; Z89.421 Acquired absence of other right toe(s)
CPT/HCPCS: 29881; J2250; J1100; J2405; J0690; J3010; J1885; J2704; J2001

== ENCOUNTER → 2023-01-07 | Outpatient (CLI) | payer MEDICARE ==
--- NOTE | 2023-01-08 09:50 | MM ---
Reason for Exam: Screening (asymptomatic). Last mammogram was performed 2 year(s) and 2 month(s) ago. Patient History: Menarche at age 11. First Full-Term at age 15. Postmenopausal. Patient used Hormonal Contraceptives for 3 years. Risk Values: Alice 5 year model risk: 1.3%. NCI Lifetime model risk: 4.6%. Prior Study Comparison: 11/09/2020 Bilateral Screening Mammogram, [facility]. Tissue Density: There are scattered fibroglandular densities. Findings: Analyzed By CAD. There is no suspicious group of microcalcifications or new suspicious mass in either breast. Overall Assessment: Negative, BI-RAD 1 Management: Screening Mammogram of both breasts in 1 year. A clinical breast exam by your physician is recommended on an annual basis and results should be correlated with mammographic findings. Electronically signed and approved by: Jian Almanza M.D. Radiologis
== END | disposition home or self-care (01) ==
LOC: RADMAMWWP 14:15
PROVIDERS: ATTEND Family Medicine
DX: Z12.31 Encounter for screening mammogram for malignant neoplasm of breast (principal); Z78.0 Asymptomatic menopausal state
CPT/HCPCS: 77063; 77067

== ENCOUNTER → 2023-05-17 | Outpatient (CLI) | payer MEDICARE ==
[2023-05-17 14:48] LABS: INR 0.9 (<1.2); Partial Thromboplastin Time 22.4 sec (22.0-30.0); Prothrombin Time 9.5 sec (9.0-12.0)
[2023-05-17 14:53] LABS: Appearance,Urine Cloudy (Clear); Bacteria,Urine Occasional /hpf; Bilirubin,Urine Negative (Negative); Blood,Urine Small (Negative); Color,Urine Yellow; Glucose,Urine (UA) Negative (Negative); Ketones,Urine Negative (Negative); Leukocyte Esterase,Urine Large (Negative); Mucus,Urine Rare /hpf; Nitrite,Urine Negative (Negative); PH, Urine 5.5 (5.0-8.0); Protein,Urine Trace (Negative); RBC,Urine 9 /hpf (0-5); Specific Gravity,Urine 1.017 (1.001-1.035); Squamous Epithelial Cell,Urine 1 /hpf (0-4); WBC,Urine 140 /hpf (0-5)
[2023-05-17 20:01] LABS: ALT 22 U/L (8-44); AST 23 U/L (13-35); Albumin 4.3 d/dL (3.8-4.9); Albumin/Globulin Ratio 1.54 Ratio (1.60-3.17); Alkaline Phosphatase 86 U/L (41-126); BUN/Creat Ratio 16.18 Ratio (12.00-20.00); Blood Urea Nitrogen 17.8 mg/dL (9.0-27.0); Carbon Dioxide 23.9 mmol/L (21.6-31.8); Chloride 108 mmol/L (96-109); Chol/HDL Ratio 3.66 Ratio; Globulin 2.8 d/dL (1.6-3.3); Glucose 106 mg/dL (70-110); LDL Cholesterol,Calculated 82.5 mg/dL (0.0-131.0); Potassium 5.1 mmol/L (3.5-5.5); Sodium 142 mmol/L (135-145); Total Bilirubin <0.2 mg/dL (0.3-1.2); Total Protein 7.1 d/dL (6.2-8.2)
[2023-05-18 02:05] LABS: HCT 43.3 % (37.2-46.3); HGB 13.8 d/dL (12.0-15.0); MCH 28.8 pg (27.0-32.0); MCHC 31.9 d/dL (32.0-37.0); MCV 90.2 FL (80.0-97.0); Mean Platelet Volume 10.3 FL (9.5-12.2); NRBC Per 100 WBC 0 X 10*3/uL (0.00-0.01); Platelet Count 283 X 10*3/uL (140-440); RDW 16.8 % (11.5-14.5); WBC 5.61 X 10*3/uL (4.50-10.00)
== END | disposition home or self-care (01) ==
LOC: LABPAT 13:26 → LABWHC1 13:26
PROVIDERS: ATTEND Orthopaedic Surgery
DX: Z01.812 Encounter for preprocedural laboratory examination (principal); M17.11 Unilateral primary osteoarthritis, right knee; I10 Essential (primary) hypertension; E11.9 Type 2 diabetes mellitus without complications; J44.9 Chronic obstructive pulmonary disease, unspecified
CPT/HCPCS: 80053; 80061; 81001; 83036; 84443; 85027; 85610; 85730; 87070

== ENCOUNTER → 2023-05-17 | Outpatient (CLI) | payer MEDICARE | END | disposition home or self-care (01) | LOC: LABPAT 13:23 | PROVIDERS: ATTEND Orthopaedic Surgery | DX: Z53.9 Procedure and treatment not carried out, unspecified reason (principal) ==

== ENCOUNTER 2023-06-11 09:14 | Observation (INO) | payer MEDICARE ==
[~2023-06-11 09:14] MED LIST changes: +ACETAMINOPHEN TAB 500 MG TAB PO PRN; -DEXAMETHASONE SOD PHOSPHATE 4 MG/ML 1 ML VIAL IV ONE; +GABAPENTIN 300 MG CAP PO PRN; -HYDROmorphone 0.5 MG/0.5 ML SYRINGE IVP PRN; -LACTATED RINGERS 1,000 ML IV SCH; +MELOXICAM 7.5 MG TAB PO PRN; -MIDAZOLAM 2 MG/2 ML VIAL IV PRN; -ONDANSETRON 4 MG/2 ML VIAL IVP ONE; +TRANEXAMIC 1,000 MG/100ML-NACL 1,000 MG in SALINE 1 100ML.BAG IVPB PRN
[2023-06-11] MEDS ORDERED: fentaNYL (PF) 50 MCG/ML 2 ML AMP IV PRN (09:58)
[2023-06-11] MEDS ORDERED: HYDROmorphone 0.5 MG/0.5 ML SYRINGE IVP PRN ×3 (09:58→12:46)
[2023-06-11] MEDS: LACTATED RINGERS 1,000 ML IV SCH (10:33)
[2023-06-11 10:38] LABS: Glucose,Whole Blood 109 mg/dL (70-110)
[2023-06-11] MEDS: ONDANSETRON 4 MG/2 ML VIAL IVP ONE ×2 (10:47→16:48)
[2023-06-11] MEDS ORDERED: MIDAZOLAM 2 MG/2 ML VIAL IVP ONE (10:53)
[2023-06-11] MEDS ORDERED: ROPIVACAINE 5 MG/ML 30 ML VIAL ONE (11:13)
[2023-06-11] MEDS ORDERED: fentaNYL (PF) 50 MCG/ML 2 ML AMP ONE (11:13)
[2023-06-11] MEDS ORDERED: ceFAZolin 1,000 MG in SODIUM CHLORIDE 0.9% 1,000 ML IRRIGATION ONE (11:13)
[2023-06-11] MEDS ORDERED: MIDAZOLAM 2 MG/2 ML VIAL ONE (11:13)
[2023-06-11] MEDS ORDERED: PROPOFOL 10 MG/ML 20 ML VIAL IV ONE (11:13)
[2023-06-11] MEDS ORDERED: SODIUM CHLORIDE 0.9% (PF) 10 ML VIAL ONE (11:13)
[2023-06-11] MEDS ORDERED: TRANEXAMIC 1,000 MG/100ML-NACL PREMIX BAG ONE (11:13)
--- NOTE | 2023-06-11 11:31 | P.ANPRN ---
Procedure Note - Anesthesia - Nerve Block Performed Right Adductor Canal Time Out Performed: Yes (:52) Date of Procedure: 06/11/23 Procedure Start Time: Procedure Stop Time: : Location of Patient: PreOp Indication: Acute Post-Operative Pain, Requested by Surgeon (Dr Galen Russell) Sedation Type: Sedate with meaningful contact maintained Preparation: Sterile Prep, Sterile Dressing Position: Supine Catheter: Indwelling Needle Types: Pajunk Needle Gauge: 21 Ultrasound used to visualize needle placement: Yes Ultrasound used to observe medication spread: Yes Injectate: 0.5% Ropivacaine (see comment for volume) (20cc) Blood Aspirated: No Pain Paresthesia on Injection Noted: No Resistance on Injection: Normal Image Stored and Saved: Yes Events: Uneventful and Well Tolerated
--- NOTE | 2023-06-11 11:32 | P.ANPRN ---
Procedure Note - Anesthesia - Nerve Block Performed Right iPack Time Out Performed: Yes Date of Procedure: 06/11/23 Procedure Start Time: 11:00 Procedure Stop Time: 11:04 Location of Patient: PreOp Indication: Acute Post-Operative Pain, Requested by Surgeon (Dr Galen Russell) Sedation Type: Sedate with meaningful contact maintained Preparation: Sterile Prep Position: Supine Catheter: None Needle Types: Pajunk Needle Gauge: 21 Ultrasound used to visualize needle placement: Yes Ultrasound used to observe medication spread: Yes Injectate: 0.5% Ropivacaine (see comment for volume) (15cc +5cc PF Normal saline) Blood Aspirated: No Pain Paresthesia on Injection Noted: No Resistance on Injection: Normal Image Stored and Saved: Yes Events: Uneventful and Well Tolerated
--- NOTE | 2023-06-11 12:18 | P.OP ---
Date of Procedure: 06/11/23 Preoperative Diagnosis: Severe osteoarthritis right knee Postoperative Diagnosis: Severe osteoarthritis right knee Procedure(s) Performed: Right total knee arthroplasty Implants: Jeffries [employer] Nephew Journey II CR Oxinium cruciate retaining femoral component size 4, right Jeff[employer]hew Journey nonporous tibial baseplate size 3, right [employer]hew Journey II, XLPE Deep Dished articular insert, size 10 mm, Size 3-4, right [employer] Journey Viri II resurfacing patellar component, oval, 29 mm All components were cemented using Palacos R bone cement The articulation is Oxinium on polyethylene Anesthesia: spinal Surgeon: Galen Russell Supervising Chef #1: Tran Murillo Estimated Blood Loss (ml): 30 Pathology: none sent Condition: stable Disposition: PACU Indications for Procedure: The patient's knee is end-stage, and conservative management has failed. The operation of knee replacement has been discussed at length in the office, as well as potential risks and complications. These are inclusive of, but not limited to: Infection, bleeding, scarring, discomfort, stiffness, blood vessel and nerve damage, need for further surgery, failure to relieve symptoms, persistence, recurrence, or worsening of problems, loosening, dislocation, wear, blood clot, pulmonary embolism, , gait dysfunction, stiffness, and other risks as discussed in the office. Patient elects to proceed and the consent form has been signed. Operative Findings: The operative findings are consistent with severe osteoarthritis of the right knee Description of Procedure: The patient was seen in the preoperative area, the consent was reviewed and the operative site was marked with a skin marker. The patient verified the procedure and the operative site. An adductor canal pain catheter and an iPACK block were placed by anesthesia in the preoperative area. The patient was then brought to the operating room and positioned on the operating room table in the supine position. Preoperative antibiotics and a gram of tranexamic acid were given intravenously. A spinal anesthetic was administered by the anesthesia department. Care was taken to make sure that all pressure points were adequately padded. A tourniquet was placed on the upper thigh and the lower extremity was prepped with ChloraPrep and draped in usual sterile fashion. A universal time-out was then performed which confirmed the patient's name, surgical site, ALLERGIES, and consent. The lower extremity was then exsanguinated and tourniquet was inflated to 250 mmHg. A standard anterior midline approach to the knee was performed. The skin and subcutaneous tissue were sharply dissected down to the patellar tendon. A medial parapatellar arthrotomy was then performed. The knee was then extended, the patellar was everted, and the knee was flexed. The infra-patellar fat pad was removed in order to enhance exposure. The anterior horns of both menisci were excised, and a release was performed to the posterior medial aspect of the knee. On gross visual inspection, there was complete loss of articular cartilage in the medial and patellofemoral joint spaces. There was also significant cartilage damage in the lateral compartment. There were multiple periarticular osteophytes globally about the knee which were then removed with a Ronguer. The femoral canal was then opened with the 9.5 mm intramedullary drill. The 8 mm intramedullary yuriy was then inserted into the femoral canal with the distal femoral cutting guide set for 5 of valgus. The distal femoral cutting block was then pinned in place. The intramedullary yuriy was then removed, and the distal femur was then cut. The cutting block was then removed and the cut was checked for symmetry. The resected bone was then measured to confirm the appropriate distal femoral resection. Next, the sizing guide was then placed and set for 3 external rotation based off of the epicondylar axis and [place]'s line. Pins were then placed and the drill holes, and the femur was sized with the sizing stylus. The pins were then removed, and the sizing guide was then removed. The spikes of the appropriate size femoral block was then placed into the predrilled holes, and malleted into place. Two 45 mm pins were then placed into the fixation holes on the cutting block. An wang wing was then used to ensure there would be no notching with the anterior cut. The anterior condyles were cut without notching. The anterior chord cut was then performed, followed by the posterior cut, posterior chamfer cut, and the anterior chamfer cut. The collateral ligaments were protected during the entire process. The cutting block was then removed. Any remaining bone and osteophytes were removed from the femur with a Ronguer. Attention was then directed to the tibia. The remaining ACL was removed with a Ronguer, and the tibia was then gently subluxed forward with a large bent knee retractor. Any remaining menisci were excised. The posterior lateral corner was cauterized in order to coagulate the lateral geniculate artery. The extra medullary tibial cutting guide was then placed, set for the appropriate rotation, slope, and depth of resection. The proximal tibia cutting guide was then pinned in place. Proximal tibia was then cut and sized. A curved osteotome was then used to remove any posterior osteophytes from the distal femur. The femoral trial was placed. A narrow saw blade was then used to remove the anterior intracondylar femoral bone. The CR notch trial was then placed. The tibial trial was placed with the appropriate-sized insert. The knee was able to fully extend and flex to 130 and was stable throughout all range of motion. The knee was then extended and the patella was everted. Patella was then measured, and then using an osteotomy guide, the patella was cut at the appropriate level. The patellar component was sized. The patellar drill guide was placed and the patella was drilled. The patella trial was then placed. The knee was then taken through range of motion with the patella trial and the patella tracked normally using the no thumbs technique. The patella trial was then removed. The knee was then flexed and lug holes were drilled through the femoral trial and the femoral trial was then removed. The tibial was then re- exposed, and the tibial broach guide was then pinned in place after it was set for the appropriate rotation to allow for the most coverage without overhang. The tibia was then reamed and broached. The femoral canal was plugged with autologous bone. The cut surfaces of bone were then irrigated with pulsatile lavage. The knee was also irrigated with Irrisept solution. The components were then opened, the cement was mixed. Cement was placed on the backside of the femoral, tibial, and patellar components. Cement was then applied to the tibial surface and pressurized into the surface using finger pressurization technique. The tibial component was then applied and excess cement was removed after it was impacted securely noted to be flush with the cut surface. In similar fashion, the cement was applied to the cut femoral surface, pressurized and using finger pressurization the component was impacted in place. Excess cement was removed. The polyethylene spacer was then implanted and locked into position. Patellar component was then applied in a similar technique and the patellar clamp was used to hold patella in place while the cement hardened. The knee was held in full extension while the cement hardened. Once the cement had fully hardened, the knee was reinspected. Any other cement extrusion was removed the final range of motion testing showed range of motion from 0-130 with excellent stability, both medial and laterally and appropriate alignment of the leg. Patella tracked normally. After the cemented hardened, the tourniquet was released and hemostasis was obtained. A second gram of transexamic acid was given intravenously. The knee was again irrigated. The knee was again taken through range of motion and found to be stable throughout all range of motion of 0-130, and the patella tracked normally. The fascia was then closed with 0 Vicryl followed by #2 strata fix suture. The subcutaneous tissue was closed with 3-0 Vicryl and 3-0 strata fix. Exofin glue was used for the skin and placed with the knee in flexion. After the glue had dried, and Optafoam silver impregnated dressing was applied. A lightly compressive dressing was applied using web roll and Mian wrap. Patient was then transferred to the stretcher and taken to recovery room in stable condition. Sponge and needle counts were correct. The early childhood assistant ALEXIS Yan was required due the complexity surgery and the need for a skilled ambulance assistant. She assisted in positioning, draping, retraction, and closure of the wound.
[2023-06-11] MEDS ORDERED: LACTATED RINGERS 1,000 ML IV ONE (12:27)
[2023-06-11] MEDS ORDERED: NALOXONE 0.4 MG/ML 1 ML VIAL IV PRN (12:46)
[2023-06-11] MEDS ORDERED: ONDANSETRON 4 MG/2 ML VIAL IVP PRN (12:46)
[2023-06-11] MEDS ORDERED: MAGNESIUM HYDROXIDE 2,400 MG/30 ML CUP PO PRN (12:46)
[2023-06-11] MEDS ORDERED: HYDROcodone/APAP 7.5-325MG 1 EACH TAB PO PRN (12:48)
[2023-06-11] MEDS ORDERED: ROPIVACAINE 1,100 MG, SODIUM CHLORIDE 0.9% 500 ML 330 ML, EMPTY PAIN BALL 1 EACH MISCELLANE PRN ×2 (13:08)
--- NOTE | 2023-06-11 13:24 | XR ---
EXAMINATION TYPE: XR knee limited RT DATE OF EXAM: 06/11/2023 CLINICAL HISTORY: Postoperative evaluation Two views of the right knee are submitted. Identified are changes of total knee arthroplasty with femoral and tibial components appearing well seated. Postsurgical soft tissue changes are noted. Alignment is anatomic.
[2023-06-11 13:33] LABS: Glucose,Whole Blood 105 mg/dL (70-110)
[2023-06-11] MEDS: SODIUM CHLORIDE 0.9% 1,000 ML IV SCH (16:49)
[2023-06-11] MEDS ORDERED: CYCLOBENZAPRINE 5 MG TAB PO PRN (17:36)
[2023-06-11] MEDS ORDERED: DEXTROSE 50% SYRINGE 50 ML IVP PRN ×2 (17:38)
[2023-06-11] MEDS: PANTOPRAZOLE 40 MG TABLET PO SCH (18:04)
[2023-06-11] MEDS: ASPIRIN 325 MG TAB PO SCH (20:42)
[2023-06-11] MEDS: SENNOSIDES-DOCUSATE SODIUM 1 EACH TAB PO SCH (20:42)
[2023-06-11] MEDS: LORATADINE 10 MG TAB PO SCH (20:42)
[2023-06-11] MEDS: HYDROmorphone 0.5 MG/0.5 ML SYRINGE IVP PRN (20:48)
[2023-06-11 21:02] LABS: Glucose,Whole Blood 117 mg/dL (70-110)
[2023-06-11] MEDS: INSULIN ASPART (NovoLOG) 100 UNIT/ML VIAL SQ SCH (22:17)
[2023-06-11] MEDS: DULoxetine HCL 30 MG CAPSULE.DR PO SCH (22:17)
[2023-06-11] MEDS: HYDROcodone/APAP 7.5-325MG 1 EACH TAB PO PRN (23:20)
[2023-06-12] MEDS: HYDROcodone/APAP 7.5-325MG 1 EACH TAB PO PRN ×3 (06:15→18:10)
[2023-06-12] MEDS: SODIUM CHLORIDE 0.9% 1,000 ML IV SCH ×2 (06:16→18:10)
[2023-06-12 06:17] LABS: Glucose,Whole Blood 128 mg/dL (70-110)
[2023-06-12] MEDS: INSULIN ASPART (NovoLOG) 100 UNIT/ML VIAL SQ SCH ×4 (06:36→21:15)
[2023-06-12] MEDS: PANTOPRAZOLE 40 MG TABLET PO SCH ×2 (06:45→16:52)
[2023-06-12] MEDS: amLODIPine 10 MG TAB PO SCH (07:59)
[2023-06-12] MEDS: MELOXICAM 7.5 MG TAB PO SCH (07:59)
[2023-06-12] MEDS: ASPIRIN 325 MG TAB PO SCH ×2 (07:59→22:38)
[2023-06-12] MEDS: metFORMIN 500 MG TAB PO SCH (08:01)
--- NOTE | 2023-06-12 08:09 | P.PN ---
Progress Note - Text Progress Note Date: 06/12/23 Postoperative day # 1 status post total knee arthroplasty, and adductor canal catheter placed for postoperative analgesia, currently at ropivacaine 0.2% 8 mL per hour and continuous infusion, patient using oral pain medication for breakthrough pain. Assessment and plan= Acute postoperative pain, adductor canal catheter for pain control, pain is well controlled we'll continue the same management.
--- NOTE | 2023-06-12 09:32 | P.PN ---
Subjective Progress Note Date: 06/12/23 This is a 67-year-old female who is status post right total knee arthroplasty. This is postoperative day #1 and patient is seen and evaluated at bedside with Dr. Galen Russell. Patient states that she is doing well and she denies any new complaints today. Objective - Vital Signs Vital signs: Vital Signs Temp 98.7 F 06/12/23 07:33 Pulse 110 H 06/12/23 07:33 Resp 26 H 06/12/23 07:33 BP 133/75 06/12/23 07:33 Pulse Ox 95 06/12/23 07:33 FiO2 Intake & Output 06/11/23 06/12/23 06/12/23 18:59 06:59 18:59 Intake Total 1451 Output Total 30 Balance 1421 Weight 84.3 kg Intake: IV 1451 Output: Estimated Blood Loss 30 Other: Voiding Method Toilet # Voids 0 1 - Exam Vital signs are stable. Patient is in no acute distress and is alert and oriented 3. Calf is soft and nontender to palpation. Dressing is clean, dry, and intact. Patient has full foot and ankle motion without pain or difficulty. Sensation intact. Neurovascular status and circulatory status are intact. - Labs Labs: Abnormal Lab Results - Last 24 Hours (Table) 06/11/23 06/12/23 Range/Units 21:01 06:15 POC Glucose (mg/dL) 117 H 128 H (70-110) mg/dL Assessment and Plan (1) Osteoarthritis of right knee Current Visit: Yes Status: Acute Code(s): M17.11 - UNILATERAL PRIMARY OSTEOARTHRITIS, RIGHT KNEE SNOMED Code(s): 372981628655657 (2) Status post total right knee replacement Current Visit: Yes Status: Acute Code(s): Z96.651 - PRESENCE OF RIGHT ARTIFICIAL KNEE JOINT SNOMED Code(s): 3579458563632 Plan: #1 Continue with routine postoperative care and pain control, leave dressing in place for 7 days. #2 Anticoagulation with aspirin. #3 Physical therapy and CPM today. #4 Appreciate input from medicine. #5 Anticipate discharge to the [facility] in the next 24-48 hours.
[2023-06-12] MEDS: HYDROmorphone 0.5 MG/0.5 ML SYRINGE IVP PRN ×2 (10:12→22:28)
[2023-06-12 11:04] LABS: Basophils # (A) 0.02 X 10*3/uL (0.00-0.10); Basophils % (A) 0.3 %; Eosinophils # (A) 0.07 X 10*3/uL (0.04-0.35); HCT 37.6 % (37.2-46.3); HGB 11.8 d/dL (12.0-15.0); Lymphocytes # (A) 1.61 X 10*3/uL (0.90-5.00); Lymphocytes % (A) 23.1 %; MCH 28.8 pg (27.0-32.0); MCHC 31.4 d/dL (32.0-37.0); MCV 91.7 FL (80.0-97.0); Mean Platelet Volume 9.7 FL (9.5-12.2); Monocytes # (A) 0.85 X 10*3/uL (0.20-1.00); Monocytes % (A) 12.2 %; NRBC Per 100 WBC 0 X 10*3/uL (0.00-0.01); Neutrophils # (A) 4.38 X 10*3/uL (1.80-7.70); Neutrophils % (A) 62.8 %; Platelet Count 226 X 10*3/uL (140-440); RDW 16.2 % (11.5-14.5); WBC 6.97 X 10*3/uL (4.50-10.00)
[2023-06-12 11:10] LABS: Glucose,Whole Blood 142 mg/dL (70-110)
[2023-06-12 11:22] LABS: African American GFR (CKD) 77 (>60 ml/min/1.73 sqM); Anion Gap 6 mmol/L; Blood Urea Nitrogen 11 mg/dL (7-17); Carbon Dioxide 25 mmol/L (22-30); Chloride 105 mmol/L (98-107); Glucose 113 mg/dL (74-99); Non-African American GFR(CKD) 67 (>60 ml/min/1.73 sqM); Potassium 4.4 mmol/L (3.5-5.1); Sodium 136 mmol/L (137-145)
[2023-06-12] MEDS: LACTATED RINGERS 1,000 ML IV SCH (12:13)
[2023-06-12] MEDS: lisinopriL 5 MG TAB PO SCH (12:48)
[2023-06-12] MEDS: ATORVASTATIN 40 MG TAB PO SCH (12:49)
--- NOTE | 2023-06-12 13:05 | P.CONS ---
History of Present Illness - Reason for Consult Consult date: 06/12/23 - Chief Complaint Status post right knee arthroplasty - History of Present Illness * 67-year-old lady with past medical history significant for hypertension, dyslipidemia, depression was admitted for elective right knee surgery * patient is seen postoperatively and postoperative day one. Patient complains of right knee pain * CBC obtained showed WBC 6.9 hemoglobin 11.8 hematocrit 37 platelet 226 * Serum chemistry shows sodium of 136 potassium 4.4 chloride [id number] BUN 6 creatinine 0.9 * HbA1c 6.3 * Patient does appear to have sinus tachycardia postoperatively from pain. Patient remains on room air denies chest pain. Pain is and right knee REVIEW OF SYSTEMS: Right knee pain CONSTITUTIONAL: No fever, no malaise, no fatigue. HEENT: No recent visual problems or hearing problems. Denied any sore throat. CARDIOVASCULAR: No chest pain, orthopnea, PND, no palpitations, no syncope. PULMONARY: No shortness of breath, no cough, no hemoptysis. GASTROINTESTINAL: No diarrhea, no nausea, no vomiting, no abdominal pain. NEUROLOGICAL: No headaches, no weakness, no numbness. HEMATOLOGICAL: Denies any bleeding or petechiae. GENITOURINARY: Denies any burning micturition, frequency, or urgency. MUSCULOSKELETAL/RHEUMATOLOGICAL: Denies any joint pain, swelling, or any muscle pain. ENDOCRINE: Denies any polyuria or polydipsia. PHYSICAL EXAMINATION: GENERAL: The patient is alert and oriented x3, not in any acute distress. Well developed, well nourished. HEENT: Pupils are round and equally reacting to light. EOMI. No scleral icterus. No conjunctival pallor. Normocephalic, atraumatic. No pharyngeal erythema. No thyromegaly. CARDIOVASCULAR: S1 and S2 present. No murmurs, rubs, or gallops. Tachycardia no keke PULMONARY: Chest is clear to auscultation, no wheezing or crackles. ABDOMEN: Soft, nontender, nondistended, normoactive bowel sounds. No palpable organomegaly. MUSCULOSKELETAL: No joint swelling or deformity. EXTREMITIES: No cyanosis, clubbing, or pedal edema. NEUROLOGICAL: Gross neurological examination did not reveal any focal deficits. SKIN: No rashes. Past Medical History Past Medical History: Diabetes Mellitus, GERD/Reflux, Hyperlipidemia, Hypertension, Osteoarthritis (OA) Additional Past Medical History / Comment(s): Anemia, lower back bilateral knee and leg pain. History of Any Multi-Drug Resistant Organisms: None Reported Past Surgical History: Orthopedic Surgery, Tubal Ligation Additional Past Surgical History / Comment(s): RIGHT KNEE ARTHROSCOPY, PAIN INJECTIONS, BABY TOE ON RIGHT FOOT AMPUTATED Past Anesthesia/Blood Transfusion Reactions: No Reported Reaction Smoking Status: Current every day smoker - Past Family History Mother Family Medical History: Cancer Additional Family Medical History / Comment(s): Pancreatic cancer Brother(s) Family Medical History: Cancer Medications and Allergies Home Medications Medication Instructions Recorded Confirmed Type Cyclobenzaprine [Flexeril] 5 mg PO TID 11/11/20 06/11/23 History DULoxetine HCL [Cymbalta] 30 mg PO HS 11/11/20 06/11/23 History Loratadine [Claritin] 10 mg PO HS 11/11/20 06/11/23 History Omeprazole [PriLOSEC] 20 mg PO BID 11/11/20 06/11/23 History amLODIPine [Norvasc] 10 mg PO QAM 11/11/20 06/11/23 History metFORMIN HCL [Glucophage] 500 mg PO QAM 11/11/20 06/11/23 History Aspirin [Adult Low Dose Aspirin EC] 81 mg PO QAM 03/12/22 06/11/23 History Atorvastatin [Lipitor] 40 mg PO 1200 03/12/22 06/11/23 History ramipriL 1.5 mg PO PC-LUNCH 03/12/22 06/11/23 History traMADol HCL [Ultram] 50 mg PO TID PRN 03/12/22 06/11/23 History Celecoxib [CeleBREX] 200 mg PO BID 30 Days #60 cap 05/28/22 06/11/23 Rx Aspirin 325 mg PO BID #60 tab 06/11/23 Rx HYDROcodone/APAP 7.5-325MG [Havana 1 - 2 tab PO Q6H PRN #32 tab 06/11/23 Rx 7.5-325] Sennosides [Senokot] 2 tab PO DAILY PRN #60 tablet 06/11/23 Rx Allergies Allergy/AdvReac Type Severity Reaction Status Date / Time No Known Allergies Allergy Verified 06/07/23 13:03 Physical Exam Vitals: Vital Signs Temp Pulse Pulse Resp BP Pulse Ox 06/12/23 07:33 98.7 F 110 H 26 H 133/75 95 06/12/23 07:19 98.3 F 104 H 14 128/79 96 06/12/23 02:00 99.5 F 113 H 109/72 90 L 06/11/23 18:00 98.3 F 102 H 17 130/79 92 L 06/11/23 17:22 98.0 F 106 H 15 105/66 93 L 06/11/23 15:45 94 16 136/70 98 06/11/23 15:15 82 19 142/71 100 06/11/23 14:45 89 16 151/82 99 06/11/23 14:15 87 18 144/66 98 06/11/23 13:45 86 17 157/85 99 06/11/23 13:30 80 16 142/75 98 06/11/23 13:15 85 19 153/83 98 Intake and Output 06/11/23 06/12/23 06/12/23 22:59 06:59 14:59 Intake Total 400 Balance 400 Intake: IV 400 Other: Voiding Method Toilet # Voids 1 1 Weight 84.3 kg Results CBC & Chem 7: 06/12/23 06:12 06/12/23 06:12 Labs: Abnormal Lab Results - Last 24 Hours (Table) 06/11/23 06/12/23 06/12/23 Range/Units 21:01 06:12 06:12 Hgb 11.8 L (12.0-15.0) d/dL MCHC 31.4 L (32.0-37.0) d/dL RDW 16.2 H (11.5-14.5) % Sodium (137-145) mmol/L Glucose (74-99) mg/dL POC Glucose (mg/dL) 117 H (70-110) mg/dL Hemoglobin A1c 6.3 H (<=6.0) % 06/12/23 06/12/23 06/12/23 Range/Units 06:12 06:15 11:09 Hgb (12.0-15.0) d/dL MCHC (32.0-37.0) d/dL RDW (11.5-14.5) % Sodium 136 L (137-145) mmol/L Glucose 113 H (74-99) mg/dL POC Glucose (mg/dL) 128 H 142 H (70-110) mg/dL Hemoglobin A1c (<=6.0) % Assessment and Plan Assessment: Assessment and plan Status post right knee arthroplasty Hypertension Diabetes mellitus2 Hyperlipidemia * In regards to postoperative care, defer to primary team/orthopedic. Ambulate as tolerated. DVT prophylaxis deferred to primary team * In regards to hypertension continue patient on lisinopril, amlodipine * In regards to diabetes mellitus Accu-Cheks before meals at bedtime continue patient on correctional insulin continue metformin. Monitor for hypoglycemia * In regards to dyslipidemia continue Lipitor * CODE STATUS is full code
[2023-06-12 16:29] LABS: Glucose,Whole Blood 118 mg/dL (70-110)
[2023-06-12 20:39] LABS: Glucose,Whole Blood 118 mg/dL (70-110)
[2023-06-12] MEDS: SENNOSIDES-DOCUSATE SODIUM 1 EACH TAB PO SCH (22:38)
[2023-06-12] MEDS: DULoxetine HCL 30 MG CAPSULE.DR PO SCH (22:38)
[2023-06-12] MEDS: LORATADINE 10 MG TAB PO SCH (22:38)
[2023-06-13] MEDS: HYDROcodone/APAP 7.5-325MG 1 EACH TAB PO PRN ×4 (00:45→18:23)
[2023-06-13 06:04] LABS: Glucose,Whole Blood 111 mg/dL (70-110)
[2023-06-13] MEDS: INSULIN ASPART (NovoLOG) 100 UNIT/ML VIAL SQ SCH ×4 (06:32→22:02)
[2023-06-13] MEDS: PANTOPRAZOLE 40 MG TABLET PO SCH ×2 (06:35→17:43)
[2023-06-13] MEDS: LACTATED RINGERS 1,000 ML IV SCH (09:59)
[2023-06-13] MEDS: SODIUM CHLORIDE 0.9% 1,000 ML IV SCH (09:59)
[2023-06-13] MEDS: ASPIRIN 325 MG TAB PO SCH ×2 (10:17→22:05)
[2023-06-13] MEDS: amLODIPine 10 MG TAB PO SCH (10:17)
[2023-06-13] MEDS: metFORMIN 500 MG TAB PO SCH (10:17)
[2023-06-13] MEDS: MELOXICAM 7.5 MG TAB PO SCH (10:18)
[2023-06-13 11:58] LABS: Glucose,Whole Blood 119 mg/dL (70-110)
--- NOTE | 2023-06-13 12:21 | P.PN ---
Subjective Progress Note Date: 06/13/23 67-year-old lady with past medical history significant for hypertension, dyslipidemia, depression was admitted for elective right knee surgery * patient is seen postoperatively and postoperative day one. Patient complains of right knee pain * CBC obtained showed WBC 6.9 hemoglobin 11.8 hematocrit 37 platelet 226 * Serum chemistry shows sodium of 136 potassium 4.4 chloride 519400 BUN 6 creatinine 0.9 * HbA1c 6.3 * Patient does appear to have sinus tachycardia postoperatively from pain. Patient remains on room air denies chest pain. * 06/13: Patient seen and evaluated bedside, patient states her right knee pain has improved. Patient to work with physical therapy regarding discharge planning and disposition REVIEW OF SYSTEMS: Right knee pain CONSTITUTIONAL: No fever, no malaise, no fatigue. HEENT: No recent visual problems or hearing problems. Denied any sore throat. CARDIOVASCULAR: No chest pain, orthopnea, PND, no palpitations, no syncope. PULMONARY: No shortness of breath, no cough, no hemoptysis. GASTROINTESTINAL: No diarrhea, no nausea, no vomiting, no abdominal pain. NEUROLOGICAL: No headaches, no weakness, no numbness. HEMATOLOGICAL: Denies any bleeding or petechiae. GENITOURINARY: Denies any burning micturition, frequency, or urgency. MUSCULOSKELETAL/RHEUMATOLOGICAL: Denies any joint pain, swelling, or any muscle pain. ENDOCRINE: Denies any polyuria or polydipsia. Objective - Vital Signs Vital signs: Vital Signs Temp 98.1 F 06/13/23 08:00 Pulse 100 06/13/23 08:00 Resp 16 06/13/23 10:20 BP 129/75 06/13/23 08:00 Pulse Ox 93 L 06/13/23 00:46 FiO2 Intake & Output 06/12/23 06/13/23 06/13/23 18:59 06:59 18:59 Other: Voiding Method Toilet Toilet Toilet # Voids 5 2 # Bowel Movements 1 - Exam PHYSICAL EXAMINATION: GENERAL: The patient is alert and oriented x3, not in any acute distress. Well developed, well nourished. HEENT: Pupils are round and equally reacting to light. EOMI. No scleral icterus. No conjunctival pallor. Normocephalic, atraumatic. No pharyngeal erythema. No thyromegaly. CARDIOVASCULAR: S1 and S2 present. No murmurs, rubs, or gallops. Sinus Tachycardia noted PULMONARY: Chest is clear to auscultation, no wheezing or crackles. ABDOMEN: Soft, nontender, nondistended, normoactive bowel sounds. No palpable organomegaly. MUSCULOSKELETAL: No joint swelling or deformity. EXTREMITIES: No cyanosis, clubbing, or pedal edema. NEUROLOGICAL: Gross neurological examination did not reveal any focal deficits. SKIN: No rashes. - Labs CBC & Chem 7: 06/12/23 06:12 06/12/23 06:12 Labs: Abnormal Lab Results - Last 24 Hours (Table) 06/12/23 06/12/23 06/13/23 Range/Units 16:27 20:36 06:01 POC Glucose (mg/dL) 118 H 118 H 111 H (70-110) mg/dL 06/13/23 Range/Units 11:56 POC Glucose (mg/dL) 119 H (70-110) mg/dL Assessment and Plan Assessment: Assessment and plan Status post right knee arthroplasty Hypertension Diabetes mellitus2 Hyperlipidemia * In regards to postoperative care, defer to primary team/orthopedic. Ambulate as tolerated. DVT prophylaxis deferred to primary team * In regards to hypertension continue patient on lisinopril, amlodipine * In regards to diabetes mellitus Accu-Cheks before meals at bedtime continue patient on correctional insulin continue metformin. Monitor for hypoglycemia * In regards to dyslipidemia continue Lipitor
[2023-06-13] MEDS: lisinopriL 5 MG TAB PO SCH (13:06)
[2023-06-13] MEDS: ATORVASTATIN 40 MG TAB PO SCH (13:10)
--- NOTE | 2023-06-13 14:00 | P.PN ---
Subjective Progress Note Date: 06/13/23 This is a 67-year-old female who is status post right total knee arthroplasty. This is postoperative day #2 and patient is seen and evaluated at bedside today. Patient states that she is doing well and she denies any new complaints today. Objective - Vital Signs Vital signs: Vital Signs Temp 98.1 F 06/13/23 08:00 Pulse 100 06/13/23 08:00 Resp 16 06/13/23 10:20 BP 129/75 06/13/23 08:00 Pulse Ox 93 L 06/13/23 00:46 FiO2 Intake & Output 06/12/23 06/13/23 06/13/23 18:59 06:59 18:59 Other: Voiding Method Toilet Toilet Toilet # Voids 5 2 # Bowel Movements 1 - Exam Vital signs are stable. Patient is in no acute distress and is alert and oriented 3. Calf is soft and nontender to palpation. Dressing is clean, dry, and intact. Patient has full foot and ankle motion without pain or difficulty. Sensation intact. Neurovascular status and circulatory status are intact. - Labs CBC & Chem 7: 06/12/23 06:12 06/12/23 06:12 Labs: Abnormal Lab Results - Last 24 Hours (Table) 06/12/23 06/12/23 06/13/23 Range/Units 16:27 20:36 06:01 POC Glucose (mg/dL) 118 H 118 H 111 H (70-110) mg/dL 06/13/23 Range/Units 11:56 POC Glucose (mg/dL) 119 H (70-110) mg/dL Assessment and Plan (1) Osteoarthritis of right knee Current Visit: Yes Status: Acute Code(s): M17.11 - UNILATERAL PRIMARY OSTEO ARTHRITIS, RIGHT KNEE SNOMED Code(s): 267588519539874 (2) Status post total right knee replacement Current Visit: Yes Status: Acute Code(s): Z96.651 - PRESENCE OF RIGHT ARTIFICIAL KNEE JOINT SNOMED Code(s): 3414689039557 Plan: #1 Continue with routine postoperative care and pain control, leave dressing in place for 7 days. #2 Anticoagulation with aspirin. #3 Physical therapy and CPM today. #4 Appreciate input from medicine. #5 Anticipate discharge to the [facility] in the next 24-48 hours.
[2023-06-13 16:56] LABS: Glucose,Whole Blood 137 mg/dL (70-110)
[2023-06-13 20:06] LABS: Glucose,Whole Blood 132 mg/dL (70-110)
[2023-06-13] MEDS: LORATADINE 10 MG TAB PO SCH (22:05)
[2023-06-13] MEDS: SENNOSIDES-DOCUSATE SODIUM 1 EACH TAB PO SCH (22:05)
[2023-06-13] MEDS: DULoxetine HCL 30 MG CAPSULE.DR PO SCH (22:05)
[2023-06-14] MEDS: HYDROcodone/APAP 7.5-325MG 1 EACH TAB PO PRN ×3 (00:30→12:32)
[2023-06-14 05:59] LABS: Glucose,Whole Blood 123 mg/dL (70-110)
[2023-06-14] MEDS: SODIUM CHLORIDE 0.9% 1,000 ML IV SCH ×2 (06:23→11:34)
[2023-06-14] MEDS: INSULIN ASPART (NovoLOG) 100 UNIT/ML VIAL SQ SCH ×2 (06:30→11:33)
[2023-06-14] MEDS: PANTOPRAZOLE 40 MG TABLET PO SCH (06:31)
[2023-06-14 08:15] VITALS: RESP 16
--- NOTE | 2023-06-14 09:07 | P.DS ---
Providers Date of admission: 06/11/23 09:15 Expected date of discharge: 06/14/23 Attending physician: Galen Russell Consults: 06/11/23 12:46 Consult Physician Routine Consulting Provider: Sonja Burkett Consult Reason/Comments: medical management Do you want consulting provider notified?: Yes Primary care physician: Daniela Alberts - Discharge Diagnosis(es) (1) Osteoarthritis of right knee Current Visit: Yes Status: Acute (2) Status post total right knee replacement Current Visit: Yes Status: Acute Hospital Course: This is a 67-year-old female who was last seen with complaint of continued right knee pain. The patient has a known history of degenerative arthritis of the right knee and presents to discuss surgical options. After discussion and consideration the patient elects to proceed with total right knee arthroplasty. The patient is seen preoperatively by her primary care physician and cleared for surgery. The patient is admitted to [facility] for total right knee arthroplasty. The procedures performed without complication or sequelae. Patient is doing well postoperatively. Vital signs are stable at discharge. Labs are stable at discharge. the patient is ambulating well with walker with minimal assistance. The patient is discharged to home on postop day #3 pending medical clearance. Please see orders and refer to the med rec for accurate list of medications. Patient Condition at Discharge: Good Plan - Discharge Summary Discharge Rx Participant: Yes New Discharge Prescriptions: New Aspirin 325 mg PO BID #60 tab HYDROcodone/APAP 7.5-325MG [Macy 7.5-325] 1 - 2 tab PO Q6H PRN #32 tab PRN Reason: Pain Sennosides [Senokot] 2 tab PO DAILY PRN #60 tablet PRN Reason: Constipation No Action Loratadine [Claritin] 10 mg PO HS DULoxetine HCL [Cymbalta] 30 mg PO HS metFORMIN HCL [Glucophage] 500 mg PO QAM amLODIPine [Norvasc] 10 mg PO QAM Omeprazole [PriLOSEC] 20 mg PO BID Cyclobenzaprine [Flexeril] 5 mg PO TID ramipriL 1.5 mg PO PC-LUNCH Aspirin [Adult Low Dose Aspirin EC] 81 mg PO QAM Atorvastatin [Lipitor] 40 mg PO 1200 traMADol HCL [Ultram] 50 mg PO TID PRN PRN Reason: Pain Celecoxib [CeleBREX] 200 mg PO BID 30 Days #60 cap Discharge Medication List Cyclobenzaprine [Flexeril] 5 mg PO TID 11/11/20 [History] DULoxetine HCL [Cymbalta] 30 mg PO HS 11/11/20 [History] Loratadine [Claritin] 10 mg PO HS 11/11/20 [History] Omeprazole [PriLOSEC] 20 mg PO BID 11/11/20 [History] amLODIPine [Norvasc] 10 mg PO QAM 11/11/20 [History] metFORMIN HCL [Glucophage] 500 mg PO QAM 11/11/20 [History] Aspirin [Adult Low Dose Aspirin EC] 81 mg PO QAM 03/12/22 [History] Atorvastatin [Lipitor] 40 mg PO 1200 03/12/22 [History] ramipriL 1.5 mg PO PC-LUNCH 03/12/22 [History] traMADol HCL [Ultram] 50 mg PO TID PRN 03/12/22 [History] Celecoxib [CeleBREX] 200 mg PO BID 30 Days #60 cap 05/28/22 [Rx] Aspirin 325 mg PO BID #60 tab 06/11/23 [Rx] HYDROcodone/APAP 7.5-325MG [Macy 7.5-325] 1 - 2 tab PO Q6H PRN #32 tab 06/11/23 [Rx] Sennosides [Senokot] 2 tab PO DAILY PRN #60 tablet 06/11/23 [Rx] Follow up Appointment(s)/Referral[facility]s): [facility] [NON-STAFF] - 1-2 Days ([facility] will call you to arrange your in home physical therapy visits. ) Galen Russell DO [Doctor of Osteopathic Medicine] - 06/24/23 2:00 pm Aleksandr Kemp [NON-STAFF] - As Needed (Please call [facility] to arrange delivery of the Continuous Passive Motion (CPM) machine. ) Activity/Diet/Wound Care/Special Instructions: Weightbearing as tolerated with a walker. CPM 5-6h daily as tolerated. Leave dressing intact. Dressing may be removed by home care nurse or by patient in 7 days. Then change dressing twice daily until follow up. May shower with initial dressing intact and after removal. If dressing become saturated, please remove. Recommend use of compression stockings daily until follow up to help prevent swelling and blood clots. May remove at night before sleeping. Please take aspirin 325mg twice daily for 30 days to prevent blood clots. Please follow up with [facility] and call with any questions or concerns, .
[2023-06-14] MEDS: metFORMIN 500 MG TAB PO SCH (10:02)
[2023-06-14] MEDS: amLODIPine 10 MG TAB PO SCH (10:03)
[2023-06-14] MEDS: MELOXICAM 7.5 MG TAB PO SCH (10:03)
[2023-06-14] MEDS: ASPIRIN 325 MG TAB PO SCH (10:04)
[2023-06-14] MEDS: LACTATED RINGERS 1,000 ML IV SCH (10:32)
[2023-06-14 10:45] LABS: Basophils # (A) 0.02 X 10*3/uL (0.00-0.10); Basophils % (A) 0.3 %; Eosinophils # (A) 0.16 X 10*3/uL (0.04-0.35); Eosinophils % (A) 2.1 %; HCT 33.9 % (37.2-46.3); Lymphocytes # (A) 1.97 X 10*3/uL (0.90-5.00); Lymphocytes % (A) 26.4 %; MCH 28.9 pg (27.0-32.0); MCHC 32.4 d/dL (32.0-37.0); MCV 89.2 FL (80.0-97.0); Mean Platelet Volume 10.2 FL (9.5-12.2); Monocytes # (A) 0.65 X 10*3/uL (0.20-1.00); Monocytes % (A) 8.7 %; NRBC Per 100 WBC 0 X 10*3/uL (0.00-0.01); Neutrophils # (A) 4.62 X 10*3/uL (1.80-7.70); Neutrophils % (A) 61.8 %; Platelet Count 233 X 10*3/uL (140-440); RDW 15.9 % (11.5-14.5); WBC 7.47 X 10*3/uL (4.50-10.00)
[2023-06-14 11:03] LABS: BUN/Creat Ratio 12.56 Ratio (12.00-20.00); Blood Urea Nitrogen 11.3 mg/dL (9.0-27.0); Calcium 9.4 mg/dL (8.7-10.3); Carbon Dioxide 26.3 mmol/L (21.6-31.8); Chloride 108 mmol/L (96-109); Glucose 113 mg/dL (70-110); Sodium 141 mmol/L (135-145)
[2023-06-14 11:29] LABS: Glucose,Whole Blood 108 mg/dL (70-110)
[2023-06-14] MEDS: lisinopriL 5 MG TAB PO SCH (12:32)
[2023-06-14] MEDS: ATORVASTATIN 40 MG TAB PO SCH (12:32)
--- NOTE | 2023-06-14 13:44 | P.PN ---
Subjective Progress Note Date: 06/14/23 67-year-old lady with past medical history significant for hypertension, dyslipidemia, depression was admitted for elective right knee surgery --patient is seen postoperatively and postoperative day one. Patient complains of right knee pain -CBC obtained showed WBC 6.9 hemoglobin 11.8 hematocrit 37 platelet 226 --Serum chemistry shows sodium of 136 potassium 4.4 chloride [id number] BUN 6 creatinine 0.9 -HbA1c 6.3 -Patient does appear to have sinus tachycardia postoperatively from pain. Patient remains on room air denies chest pain. 06/14/2023 Patient seen and evaluated bedside, patient states her right knee pain has improved. Patient has been recommended SNF; insurance auth is obtained; patient stable for dc Objective - Vital Signs Vital signs: Vital Signs Temp 98.4 F 06/14/23 08:00 Pulse 106 H 06/14/23 08:00 Resp 18 06/14/23 10:50 BP 130/69 06/14/23 08:00 Pulse Ox 94 L 06/14/23 00:50 FiO2 Intake & Output 06/13/23 06/14/23 06/14/23 18:59 06:59 18:59 Intake Total 225 Balance 225 Intake: Oral 225 Other: Voiding Method Toilet Toilet Toilet # Voids 2 2 1 # Bowel Movements 1 - Exam GENERAL: The patient is alert and oriented x3, not in any acute distress. Well developed, well nourished. HEENT: Pupils are round and equally reacting to light. EOMI. No scleral icterus. No conjunctival pallor. Normocephalic, atraumatic. No pharyngeal erythema. No thyromegaly. CARDIOVASCULAR: S1 and S2 present. No murmurs, rubs, or gallops. Sinus Tachycardia noted PULMONARY: Chest is clear to auscultation, no wheezing or crackles. ABDOMEN: Soft, nontender, nondistended, normoactive bowel sounds. No palpable organomegaly. MUSCULOSKELETAL: No joint swelling or deformity. EXTREMITIES: No cyanosis, clubbing, or pedal edema. NEUROLOGICAL: Gross neurological examination did not reveal any focal deficits. SKIN: No rashes. - Labs CBC & Chem 7: 06/14/23 06:34 06/14/23 06:34 Labs: Abnormal Lab Results - Last 24 Hours (Table) 06/13/23 06/13/23 06/14/23 Range/Units 16:54 20:05 05:59 RBC (4.10-5.20) X 10*6/uL Hgb (12.0-15.0) d/dL Hct (37.2-46.3) % RDW (11.5-14.5) % Glucose (70-110) mg/dL POC Glucose (mg/dL) 137 H 132 H 123 H (70-110) mg/dL 06/14/23 06/14/23 Range/Units 06:34 06:34 RBC 3.80 L (4.10-5.20) X 10*6/uL Hgb 11.0 L (12.0-15.0) d/dL Hct 33.9 L (37.2-46.3) % RDW 15.9 H (11.5-14.5) % Glucose 113 H (70-110) mg/dL POC Glucose (mg/dL) (70-110) mg/dL Assessment and Plan Assessment: Status post right knee arthroplasty Hypertension Diabetes mellitus2 Hyperlipidemia * In regards to postoperative care, defer to primary team/orthopedic. Ambulate as tolerated. DVT prophylaxis deferred to primary team * In regards to hypertension continue patient on lisinopril, amlodipine * In regards to diabetes mellitus Accu-Cheks before meals at bedtime continue patient on correctional insulin continue metformin. Monitor for hypoglycemia * In regards to dyslipidemia continue Lipitor
[2023-06-14 15:31] VITALS: BP 143/76; PULSE 101; TEMP 97.8
== END 2023-06-14 14:36 ==
LOC: OR 09:14 → 4SSUR 09:15
PROVIDERS: ADMIT Orthopaedic Surgery; ATTEND Orthopaedic Surgery
DX: M17.11 Unilateral primary osteoarthritis, right knee (principal); G89.18 Other acute postprocedural pain; M21.061 Valgus deformity, not elsewhere classified, right knee; I10 Essential (primary) hypertension; E11.9 Type 2 diabetes mellitus without complications; J44.9 Chronic obstructive pulmonary disease, unspecified; E78.5 Hyperlipidemia, unspecified; D64.9 Anemia, unspecified; R00.0 Tachycardia, unspecified; Z87.891 Personal history of nicotine dependence; F32.A Depression, unspecified; K21.9 Gastro-esophageal reflux disease without esophagitis; Z79.82 Long term (current) use of aspirin; Z79.84 Long term (current) use of oral hypoglycemic drugs; Z79.1 Long term (current) use of non-steroidal anti-inflammatories (NSAID); Z79.899 Other long term (current) drug therapy; Z87.11 Personal history of peptic ulcer disease; Z98.51 Tubal ligation status; Z89.421 Acquired absence of other right toe(s); Z98.890 Other specified postprocedural states; Z82.49 Family history of ischemic heart disease and other diseases of the circulatory system; Z80.0 Family history of malignant neoplasm of digestive organs
CPT/HCPCS: 27447; 97116; 97530; 97162; 97535; 97166; 64999; 64448; 80048 ×2; 85025 ×2; 83036; 73560; G0378; C1713; C1776; C1751; J2250; J0690 ×3; J2405; J2795; J1170 ×2

== ENCOUNTER → 2024-02-11 | Outpatient (CLI) | payer MEDICARE ==
--- NOTE | 2024-02-12 19:17 | MM ---
Reason for Exam: Screening (asymptomatic). Last mammogram was performed 1 year(s) and 1 month(s) ago. Patient History: Menarche at age 11. First Full-Term at age 15. Postmenopausal. Patient used Hormonal Contraceptives for 3 years. Risk Values: Alice 5 year model risk: 1.7%. NCI Lifetime model risk: 5.3%. Prior Study Comparison: 11/09/2020 Bilateral Screening Mammogram, [facility]. 01/07/2023 Bilateral MG 3D screening mammo w/cad, [facility]. Tissue Density: There are scattered areas of fibroglandular density. Findings: Analyzed By CAD. There is no suspicious group of microcalcifications or new suspicious mass in either breast. Overall Assessment: Negative, BI-RAD 1 Management: Screening Mammogram of both breasts in 1 year. Patient should continue monthly self-breast exams. A clinical breast exam by your physician is recommended on an annual basis. This exam should not preclude additional follow-up of suspicious palpable abnormalities. Note on Alice scores and lifetime risk: 1. A Alice score greater than 3% is considered moderate risk. If this is the case, consider specialist referral to assess eligibility for a risk reducing agent. 2. If overall lifetime risk for the development of breast cancer is 20% or higher, the patient may qualify for future screening with alternating mammogram and breast MRI. Electronically signed and approved by: Mac Pulliam M.D. Radiologist
== END | disposition home or self-care (01) ==
LOC: RADMAMWWP 13:29
PROVIDERS: ATTEND Family Medicine
DX: Z12.31 Encounter for screening mammogram for malignant neoplasm of breast (principal); Z78.0 Asymptomatic menopausal state
CPT/HCPCS: 77063; 77067

== ENCOUNTER 2024-06-25 09:54 | Day surgery (SDC) | payer MEDICARE, OTHER ==
[2024-06-24 09:47] VITALS: BMI 29.0
--- NOTE | 2024-06-25 08:57 | P.GSHP ---
History of Present Illness H&P Date: 06/25/24 CHIEF COMPLAINT: Colon screen HISTORY OF PRESENT ILLNESS: The patient is a 68-year-old female who presents for positive Cologuard testing. Lower endoscopy was offered for further evaluation and management. PAST MEDICAL HISTORY: Please see list. PAST SURGICAL HISTORY: Please see list. MEDICATIONS: Please see list. ALLERGIES: Please see list. SOCIAL HISTORY: No illicit drug use FAMILY HISTORY: No reports of Crohn disease or ulcerative colitis. REVIEW OF ORGAN SYSTEMS: CONSTITUTIONAL: No reports of fevers or chills. PHYSICAL EXAM: VITAL SIGNS: Stable GENERAL: Well-developed pleasant in no acute distress. HEENT: No scleral icterus. Extraocular movements grossly intact. Moist buccal mucosa. NECK: Supple without lymphadenopathy. CHEST: Unlabored respirations. Equal bilateral excursions. CARDIOVASCULAR: Regular rate and rhythm. Distal 2+ pulses. ABDOMEN: Soft, nontender, nondistended. MUSCULOSKELETAL: No clubbing, cyanosis, or edema. ASSESSMENT: 1. Abnormal stool testing PLAN: 1. Recommend proceeding with a lower endoscopy Past Medical History Past Medical History: Diabetes Mellitus, GERD/Reflux, Hyperlipidemia, Hypertension, Osteoarthritis (OA) Additional Past Medical History / Comment(s): Anemia. Lower back bilateral knee and leg pain. History of Any Multi-Drug Resistant Organisms: None Reported Past Surgical History: Orthopedic Surgery, Tubal Ligation Additional Past Surgical History / Comment(s): RIGHT KNEE ARTHROSCOPY, PAIN INJECTIONS, BABY TOE ON RIGHT FOOT AMPUTATED Past Anesthesia/Blood Transfusion Reactions: No Reported Reaction Smoking Status: Current every day smoker - Past Family History Mother Family Medical History: Cancer Additional Family Medical History / Comment(s): Pancreatic cancer Brother(s) Family Medical History: Cancer Medications and Allergies Home Medications Medication Instructions Recorded Confirmed Type Cyclobenzaprine [Flexeril] 5 mg PO TID 11/11/20 06/24/24 History DULoxetine HCL [Cymbalta] 30 mg PO HS 11/11/20 06/24/24 History Loratadine [Claritin] 10 mg PO HS 11/11/20 06/24/24 History Omeprazole [PriLOSEC] 20 mg PO BID 11/11/20 06/24/24 History amLODIPine [Norvasc] 10 mg PO QAM 11/11/20 06/24/24 History metFORMIN HCL [Glucophage] 500 mg PO QAM 11/11/20 06/24/24 History Aspirin [Adult Low Dose Aspirin EC] 81 mg PO QAM 03/12/22 06/24/24 History Atorvastatin [Lipitor] 40 mg PO 1200 03/12/22 06/24/24 History ramipriL 1.5 mg PO PC-LUNCH 03/12/22 06/24/24 History Magnesium Hydroxide [Milk of 2,400 mg PO DAILY PRN ml 06/14/23 06/24/24 Rx Magnesia] traMADol HCL 50 mg PO Q6H PRN 06/24/24 06/24/24 History Allergies Allergy/AdvReac Type Severity Reaction Status Date / Time No Known Allergies Allergy Verified 06/24/24 09:22
[2024-06-25 10:25] VITALS: TEMP 97
[2024-06-25] MEDS: IV FLUID CONTINUATION 1,000 ML IV ONE (10:33)
[2024-06-25] MEDS: LACTATED RINGERS 1,000 ML BAG IV STA (10:34)
[2024-06-25 10:36] LABS: Glucose,Whole Blood 97 mg/dL (70-110)
[2024-06-25] MEDS ORDERED: LIDOCAINE 1% INJ 10MG/ML (20 ML MDV) ONE (11:15)
[2024-06-25] MEDS ORDERED: PROPOFOL 10 MG/ML 20 ML VIAL IV ONE (11:15)
--- NOTE | 2024-06-25 11:53 | P.PCN ---
Date of Procedure: 06/25/24 Description of Procedure: PREOPERATIVE DIAGNOSIS: Abnormal stool study, positive Cologuard POSTOPERATIVE DIAGNOSIS: Tubular adenoma appendiceal orifice Tubular adenoma transverse colon Tubular adenoma descending colon Internal hemorrhoids, grade 2 OPERATION: Colonoscopy to the ileocecal valve and appendiceal orifice, cecum Colonoscopy with hot snare polypectomy SURGEON: Bonita Ibanez MD. ANESTHESIA: MAC. INDICATIONS: The patient is an 68-year-old female presents for first colonoscopy after positive Cologuard test. Benefits and risks were described and informed consent was obtained. DESCRIPTION OF PROCEDURE: The patient had undergone GoLytely prep. The patient had been brought into the operating room and laid in the left lateral decubitus position. After adequate intravenous sedation, the rectum was examined with 2% lidocaine jelly. External hemorrhoids were encountered. The rectal tone was within normal limits. No lesions were palpated in the rectal vault. An Olympus colonoscope was advanced until the cecum, ileocecal valve and appendiceal orifice were clearly viewed. The prep was excellent. No sigmoid diverticulosis was encountered. Colonic polyps were found and removed. No evidence of focal colitis was found. Retroflexion of the scope demonstrated grade 2 internal hemorrhoids without active bleeding or inflammation. The colon was desufflated. The patient had tolerated the procedure well. Withdrawal time was over 6 minutes. FINDINGS: Aronchick preparation quality scale 1 (1-5) Internal hemorrhoids, grade 1 External hemorrhoids, grade 1 No arteriovenous malformations. No large sigmoid diverticulosis Highly redundant sigmoid colon requiring abdominal wall pressure Removal of 3 polyps: - Snare polypectomy appendiceal orifice, 8 mm tubulovillous adenoma - Snare polypectomy transverse colon, 4 mm flat villous adenoma - Snare polypectomy descending colon, 5 mm flat villous adenoma No focal colitis. RECOMMENDATIONS: Repeat colonoscopy 3 years, 2026 Plan - Discharge Summary Discharge Rx Participant: Yes New Discharge Prescriptions: Continue Loratadine [Claritin] 10 mg PO HS DULoxetine HCL [Cymbalta] 30 mg PO HS metFORMIN HCL [Glucophage] 500 mg PO QAM amLODIPine [Norvasc] 10 mg PO QAM Omeprazole [PriLOSEC] 20 mg PO BID Cyclobenzaprine [Flexeril] 5 mg PO TID ramipriL 1.5 mg PO PC-LUNCH Aspirin [Adult Low Dose Aspirin EC] 81 mg PO QAM Atorvastatin [Lipitor] 40 mg PO 1200 traMADol HCL 50 mg PO Q6H PRN PRN Reason: Pain Discharge Medication List Cyclobenzaprine [Flexeril] 5 mg PO TID 11/11/20 [History] DULoxetine HCL [Cymbalta] 30 mg PO HS 11/11/20 [History] Loratadine [Claritin] 10 mg PO HS 11/11/20 [History] Omeprazole [PriLOSEC] 20 mg PO BID 11/11/20 [History] amLODIPine [Norvasc] 10 mg PO QAM 11/11/20 [History] metFORMIN HCL [Glucophage] 500 mg PO QAM 11/11/20 [History] Aspirin [Adult Low Dose Aspirin EC] 81 mg PO QAM 03/12/22 [History] Atorvastatin [Lipitor] 40 mg PO 1200 03/12/22 [History] ramipriL 1.5 mg PO PC-LUNCH 03/12/22 [History] traMADol HCL 50 mg PO Q6H PRN 06/24/24 [History] Follow up Appointment(s)/Referral(s): Bonita Ibanez MD [STAFF PHYSICIAN] - As Needed Patient Instructions/Handouts: Colorectal Polyps (GEN) Activity/Diet/Wound Care/Special Instructions: Repeat colonoscopy 3 years, 2026 Discharge Disposition: HOME SELF-CARE
[2024-06-25 11:59] VITALS: BP 137/72; PULSE 92; RESP 16
== END 2024-06-25 12:20 | disposition home or self-care (01) ==
LOC: ORWHC2ENDO 09:54
PROVIDERS: ATTEND Surgery Plastic and Reconstructive Surgery
DX: D12.6 Benign neoplasm of colon, unspecified
CPT/HCPCS: 45385; 88305